=== PATIENT | male | born 1980 | race Caucasian/White ===

== ENCOUNTER 2016-07-27 12:20 | Emergency (ER) | payer OTHER ==
[~2016-07-27] VITALS: Ht 165.1 cm; Wt 80.0 kg
[~2016-07-27 12:20] MED LIST: ADV10050 INH; ADV25050 INHALATION; ALBU18HF INHALATION; ALBU8.5H3 INH; ALBU8.5H5 INH; IBUP-1542 PO; PRED20TA PO; TRAM50TA2 PO
[2016-07-27 12:24] VITALS: Ht 165.1 cm; Wt 80.0 kg
[2016-07-27] MEDS ORDERED: IPRATROPIUM (NEB) 0.5 MG/2.5 ML AMP INH STA (12:54)
[2016-07-27] MEDS ORDERED: ALBUTEROL 0.5% (NEB) 2.5 MG/0.5 ML AMP INH STA (12:54)
[2016-07-27] MEDS ORDERED: METHYLPREDNISOLONE 125 MG INJ IM ONE (13:00)
--- NOTE | 2016-07-27 14:22 | RADRPT ---
PROCEDURE: XR Chest AP portable CLINICAL INDICATION: Asthma TECHNIQUE: An AP portable radiograph of the chest was submitted. COMPARISON: 02/22/2015 FINDINGS: Support Hardware: None Cardiovascular: The cardiovascular silhouette appears unremarkable. Lung Pruett: The lung pruett appear clear with no nodule, alveolar infiltrate, or interstitial promi nence evident. Pleural Spaces: No pneumothorax or pleural effusion is identified. Osseous Structures: The osseous structures appear intact. Soft Tissues: The soft tissues appear generous. IMPRESSION: Stable and unremarkable portable chest. Physician Jan Date Time Electronically viewed and signed by Vicky Camacho Physician on 07/27/2016 14:22 /
[2016-07-27] MEDS ORDERED: ALBU18HF INHALATION (14:37)
[2016-07-27] MEDS ORDERED: PRED20TA PO (14:37)
--- NOTE | 2016-07-27 14:45 | ERD ---
ER Documentation Chief Complaint Date/Time DATE: 07/27/16 TIME: 14:42 Chief Complaint sob for past hour, breathing treatment given. bilateral insp +exp wheezing HPI 35-year-old male patient with a past medical history of asthma presents to the ED complaining of shortness of breath that started 1 hour ago. States that he called the ambulance to take him to the hospital because he was having shortness of breath and was giving one breathing treatment. States that he still smokes but is unable to quantify the amount. Denies any chest pain, abdominal pain, nausea, vomiting, diarrhea, rashes. Denies any recent traveling. Denies any leg swelling. Denies any dyspnea on exertion, hemoptysis. ROS All systems reviewed and are negative except as per history of present illness. Medications Home Meds Active Scripts Salmeterol Xinaf-Fluticasone* (Advair*) 100/50 Diskus Inhaler, 1 INH INHALATION BID, #1 INHALER Prov:MONICA SALAS PA-C 07/27/16 Albuterol Sulfate* (Ventolin HFA*) 18 Gm Hfa.aer.ad, 2 PUFF INHALATION Q4H, #1 INHALER Prov:MONICA SALAS PA-C 07/27/16 Prednisone* (Prednisone*) 20 Mg Tab, 40 MG PO DAILY for 4 Days, TAB Prov:MONICA SALAS PA-C 07/27/16 Tramadol HCl (Tramadol HCl) 50 Mg Tablet, 50 MG PO Q4 Y for PAIN, #20 TAB Prov:DENISE LEW NP 08/14/15 Ibuprofen* (Motrin*) 600 Mg Tab, 600 MG PO Q6H Y for PAIN AND OR ELEVATED TEMP, #30 TAB Prov:DENISE LEW NP 08/14/15 Salmeterol Xinaf/Fluticasone* (Advair*) 250-50 Diskus Inhaler, 1 INH INHALATION BID, #1 INHALER Prov:RAJANI MORSE MD 07/18/15 Albuterol Sulfate* (Ventolin HFA*) 18 Gm Hfa.aer.ad, 2 PUFF INHALATION Q4H, #1 INHALER 1 refill Prov:RAJANI MORSE MD 07/18/15 Prednisone* (Prednisone*) 20 Mg Tab, 60 MG PO DAILY for 5 Days, TAB 60 mg by mouth for 3 days then 40 mg by mouth 3 days Prov:RAJANI MORSE MD 07/18/15 Prednisone (Prednisone) 20 Mg Tab, 20 MG PO DAILY, #6 TAB Prov:SANDRA VILLALBA MD 02/22/15 Salmeterol Xinaf-Fluticasone* (Advair*) 100/50 Diskus Inhaler, 1 INH INH BID for 30 Days, INH Prov:SANDRA VILLALBA MD 02/22/15 Albuterol Sulfate* (Proair HFA*) 8.5 Gm Hfa.aer.ad, 2 PUFF INH Q4H Y for WHEEZING AND SOB for 30 Days, INH Prov:SANDRA VILLALBA MD 02/22/15 Albuterol Sulfate* (Albuterol Sulfate* HFA) 8.5 Gm Hfa.aer.ad, 1-2 PUFF INH Q4 Y for SHORTNESS OF BREATH, #1 EA Prov:SANDRA VILLALBA MD 02/22/15 Allergies Allergies: Coded Allergies: No Known Drug Allergies (Verified Allergy, Mild, 08/13/15) PMhx/Soc History of Surgery: No Anesthesia Reaction: No Hx Neurological Disorder: No Hx Respiratory Disorders: Yes (Asthma) Hx Cardiac Disorders: No Hx Psychiatric Problems: No Hx Miscellaneous Medical Probl: No Hx Alcohol Use: Yes (occassional) Hx Substance Use: No Hx Tobacco Use: Yes Smoking Status: Current every day smoker Physical Exam Vitals Vital Signs Date Time Temp Pulse Resp B/P Pulse Ox O2 Delivery O2 Flow Rate FiO2 07/27/16 15:36 83 20 122/68 100 Room Air 07/27/16 13:07 85 20 96 21 07/27/16 12:24 97.6 88 20 128/60 96 Physical Exam Const: [id number], well-nourished. In no acute distress. Head: Atraumatic, normocephalic Eyes: Normal Conjunctiva without injection. No purulent discharge. PERRL. EOMI ENT: Normal external ear. Ear canal without erythema. Tympanic membrane pearly cornell without effusion or bulging. Nasal canal clear with normal turbinates. Moist oropharynx without tonsillar exudates. Non-erythematous pharynx. Uvula midline. No drooling. No trismus. Neck: Full range of motion. No meningismus. No cervical lymphadenopathy. Resp: Inspiratory and expiratory wheezing noted. No rhonchi, rales, or crackles. No accessory muscle use. No retractions. Cardio: Regular rate and rhythm. No murmurs, rubs or gallops. Abd: Soft, non tender, non distended. Normal bowel sounds. No palpable masses. No rebound tenderness. No guarding. Skin: No petechiae or rashes Back: No midline tenderness. No CVA tenderness. Ext: No cyanosis, or edema. Neur: Awake and alert. Psych: Normal Mood and Affect Results 24 hrs Current Medications Medications (Trade) Dose Ordered Sig/Beatriz Route PRN Reason Start Time Stop Time Status Last Admin Dose Admin Albuterol (Proventil 0.5% (Neb)) 10 mg ONCE STAT INH 07/27/16 12:54 07/27/16 12:56 DC 07/27/16 13:04 Ipratropium [place] (Atrovent 0.02% (Neb)) 1 mg ONCE STAT INH 07/27/16 12:54 07/27/16 12:56 DC 07/27/16 13:04 Methylprednisolone Sodium Succinate (Solu-Medrol) 125 mg ONCE ONCE IM 07/27/16 13:00 07/27/16 13:01 DC 07/27/16 13:03 Procedures/MDM This is a 35-year-old male patient with a past medical history of asthma presents to the ED complaining of shortness of breath that started about 1 hour ago. Patient is afebrile and nontoxic-appearing. Patient has normal vital signs. Patient was further evaluated with 10 mg continuous albuterol, 1 mg Atrovent, Solu-Medrol 125 mg IM. Chest x-ray was ordered to further evaluate patient. PROCEDURE: XR Chest AP portable CLINICAL INDICATION: Asthma TECHNIQUE: An AP portable radiograph of the chest was submitted. COMPARISON: 02/22/2015 FINDINGS: Support Hardware: None Cardiovascular: The cardiovascular silhouette appears unremarkable. Lung [place]: The lung burnham appear clear with no nodule, alveolar infiltrate, or interstitial prominence evident. Pleural Spaces: No pneumothorax or pleural effusion is identified. Osseous Structures: The osseous structures appear intact. Soft Tissues: The soft tissues appear generous. IMPRESSION: Stable and unremarkable portable chest. Patient likely has an asthma exacerbation. Low suspicion for atypical [place], pneumonia, pulmonary embolism, pneumothorax, cardiac tamponade, sinusitis, peritonsillar abscess, mastoiditis, Brayden's angina, retropharyngeal abscess, meningitis, sepsis or other emergent conditions. Patient's respiratory status has stabilized while in the department and is appropriate for outpatient work up. Exam and work up not consistent w/ impending respiratory failure or cardiovascular collapse. Discharge medications: Prednisone, Albuterol, Advair Follow up with primary care physician in 1-2 days. Instructed patient to return to the ED sooner for any worsening symptoms. Patient's questions were answered. Patient understood and agreed with discharge plan. Patient discharged stable. Departure Diagnosis: Primary Impression: Asthma with acute exacerbation Asthma severity: unspecified severity Qualified Code: J45.901 - Asthma with acute exacerbation, unspecified asthma severity Condition: Stable Patient Instructions: Asthma Medications, Asthma, Acute (Adult), Smoking Cessation Referrals: COMMUNITY CLINICS YOU HAVE RECEIVED A MEDICAL SCREENING EXAM AND THE RESULTS INDICATE THAT YOU DO NOT HAVE A CONDITION THAT REQUIRES URGENT TREATMENT IN THE EMERGENCY DEPARTMENT. FURTHER EVALUATION AND TREATMENT OF YOUR CONDITION CAN WAIT UNTIL YOU ARE SEEN IN YOUR DOCTORS OFFICE WITHIN THE NEXT 1-2 DAYS. IT IS YOUR RESPONSIBILITY TO MAKE AN APPOINTMENT FOR FOL-UP CARE. IF YOU HAVE A PRIMARY DOCTOR --you should call your primary doctor and schedule an appointment IF YOU DO NOT HAVE A PRIMARY DOCTOR YOU CAN CALL OUR PHYSICIAN REFERRAL HOTLINE AT IF YOU CAN NOT AFFORD TO SEE A PHYSICIAN YOU CAN CHOSE FROM THE FOLLOWING [facility] [address] [facility] [facility] [address] [facility]. [facility] [address] [facility]. [facility] [address] [facility] [address] [facility]. [facility]. [address] [facility]. [facility] YOU HAVE RECEIVED A MEDICAL SCREENING EXAM AND THE RESULTS INDICATE THAT YOU DO NOT HAVE A CONDITION THAT REQUIRES URGENT TREATMENT IN THE EMERGENCY DEPARTMENT. FURTHER EVALUATION AND TREATMENT OF YOUR CONDITION CAN WAIT UNTIL YOU ARE SEEN IN YOUR DOCTORS OFFICE WITHIN THE NEXT 1-2 DAYS. IT IS YOUR RESPONSIBILITY TO MAKE AN APPOINTMENT FOR FOLOW-UP CARE. IF YOU HAVE A PRIMARY DOCTOR --you should call your primary doctor and schedule and appointment IF YOU DO NOT HAVE A PRIMARY DOCTOR YOU CAN CALL OUR PHYSICIAN REFERRAL HOTLINE AT . IF YOU CAN NOT AFFORD TO SEE A PHYSICIAN YOU CAN CHOSE FROM THE FOLLOWING [facility] INSTITUTIONS: [facility] [address] [place] [address] [facility] [address] [place], [place] [id number] [place] [address] [address] [place] [address] [facility] URGENT CARE/SPECIALTIES Additional Instructions: Call your primary care doctor TOMORROW for an appointment during the next 1-2 days for a referral to see a stem teacher. See the doctor sooner or return here if your condition worsens before your appointment time. MONICA SALAS PA-C July 27, 2016 14:45
[2016-07-27] MEDS ORDERED: ADV10050 INHALATION (14:47)
[2016-07-27 15:36] VITALS: BP 122/68; PULSE 83; RESP 20
== END 2016-07-27 15:38 | disposition home or self-care (01) ==
LOC: FTE 12:20
DX: J45.901 Unspecified asthma with (acute) exacerbation (principal); F17.210 Nicotine dependence, cigarettes, uncomplicated
CPT/HCPCS: 71010; 94644; J2930; Z7610; 96372

== ENCOUNTER 2016-10-16 13:00 | Emergency (ER) | payer SELFPAY ==
[~2016-10-16] VITALS: Ht 167.6 cm; Wt 76.0 kg
[~2016-10-16 13:00] MED LIST changes: +ADV10050 INHALATION
[2016-10-16 13:01] VITALS: Ht 167.6 cm; Wt 76.0 kg
[2016-10-16] MEDS ORDERED: ALBUTEROL 0.083% (NEB) 2.5 MG/3 ML AMP HHN STA (13:22)
--- NOTE | 2016-10-16 13:27 | ERA ---
ER Documentation Chief Complaint Date/Time DATE: 10/16/16 TIME: 13:23 Chief Complaint sob x 1 hour HX asthma HPI 36-year-old male with a history of asthma presenting with shortness of breath and wheezing. Patient states that it feels like an asthma attack. Patient states he has run out of his Advair and albuterol inhaler and that is why it has gotten this bad. No recent illness or identifiable triggers for this acute asthma exacerbation. No other complaints. No medications. No other medical conditions or past medical history. Nursing notes have been reviewed and are consistent with a history given. ROS All systems reviewed and are negative except as per history of present illness. Medications Home Meds Active Scripts Salmeterol Xinaf-Fluticasone* (Advair*) 100/50 Diskus Inhaler, 1 INH INHALATION BID, #1 INHALER Prov:VIRI GLORIA PA-C 10/16/16 Albuterol Sulfate* (Proair HFA*) 8.5 Gm Hfa.aer.ad, 2 PUFF INH Q4, #1 INHALER Prov:VIRI GLORIA PA-C 10/16/16 Salmeterol Xinaf-Fluticasone* (Advair*) 100/50 Diskus Inhaler, 1 INH INHALATION BID, #1 INHALER Prov:MONICA SALAS PA-C 07/27/16 Albuterol Sulfate* (Ventolin HFA*) 18 Gm Hfa.aer.ad, 2 PUFF INHALATION Q4H, #1 INHALER Prov:MONICA SALAS PA-C 07/27/16 Prednisone* (Prednisone*) 20 Mg Tab, 40 MG PO DAILY for 4 Days, TAB Prov:MONICA SALAS PA-C 07/27/16 Tramadol HCl (Tramadol HCl) 50 Mg Tablet, 50 MG PO Q4 Y for PAIN, #20 TAB Prov:DENISE LEW NP 08/14/15 Ibuprofen* (Motrin*) 600 Mg Tab, 600 MG PO Q6H Y for PAIN AND OR ELEVATED TEMP, #30 TAB Prov:DENISE LEW NP 08/14/15 Salmeterol Xinaf/Fluticasone* (Advair*) 250-50 Diskus Inhaler, 1 INH INHALATION BID, #1 INHALER Prov:RAJANI MORSE MD 07/18/15 Albuterol Sulfate* (Ventolin HFA*) 18 Gm Hfa.aer.ad, 2 PUFF INHALATION Q4H, #1 INHALER 1 refill Prov:RAJANI MORSE MD 07/18/15 Prednisone* (Prednisone*) 20 Mg Tab, 60 MG PO DAILY for 5 Days, TAB 60 mg by mouth for 3 days then 40 mg by mouth 3 days Prov:RAJANI MORSE MD 07/18/15 Prednisone (Prednisone) 20 Mg Tab, 20 MG PO DAILY, #6 TAB Prov:SANDRA VILLALBA MD 02/22/15 Salmeterol Xinaf-Fluticasone* (Advair*) 100/50 Diskus Inhaler, 1 INH INH BID for 30 Days, INH Prov:SANDRA VILLALBA MD 02/22/15 Albuterol Sulfate* (Proair HFA*) 8.5 Gm Hfa.aer.ad, 2 PUFF INH Q4H Y for WHEEZING AND SOB for 30 Days, INH Prov:SANDRA VILLALBA MD 02/22/15 Albuterol Sulfate* (Albuterol Sulfate* HFA) 8.5 Gm Hfa.aer.ad, 1-2 PUFF INH Q4 Y for SHORTNESS OF BREATH, #1 EA Prov:SANDRA VILLALBA MD 02/22/15 Allergies Allergies: Coded Allergies: No Known Drug Allergies (Verified Allergy, Mild, 10/16/16) PMhx/Soc History of Surgery: No Anesthesia Reaction: No Hx Neurological Disorder: No Hx Respiratory Disorders: Yes (Asthma) Hx Cardiac Disorders: No Hx Psychiatric Problems: No Hx Miscellaneous Medical Probl: No Hx Alcohol Use: Yes (occassional) Hx Substance Use: No Hx Tobacco Use: Yes Physical Exam Vitals Vital Signs Date Time Temp Pulse Resp B/P Pulse Ox O2 Delivery O2 Flow Rate FiO2 10/16/16 13:42 78 18 96 21 10/16/16 13:01 98.6 91 20 121/85 97 Physical Exam Const: Healthy-appearing. Well-nourished. Overweight. No acute distress. Pulm: Moderate wheezes in all lung pruett bilaterally. No stridor, tripoding or drooling. Neck: No cervical lymphadenopathy, masses or goiter palpated. Trachea midline. Supple ~ No meningismus. Auscultation reviled good air movement and no bruits. Nose: Normal nose without discharge, septal deviation, or sinus tenderness. Cardio: Regular rate and rhythm; No murmurs, gallops or rubs auscultated. No JVD grossly observed. Radial and posterior tibial pulses 2+ bilaterally. No cyanosis. Capillary refill less than 2 seconds. Oral: No oral edema visualized. Mucous membranes moist and pink. Head: Normocephalic, Atraumatic. Eyes: Non-injected; No scleral erythema, discharge or foreign body. EOMI and FRANK bilaterally. Ears: Normal External Ears, EACs clear, TM normal bilaterally without erythema. Abd: Soft, non tender, non distended. No guarding, masses. Normal bowel sounds. No McBurney's point tenderness. MS: Normal motor strength, normal tone with gross examination. Skin: No petechiae or rashes. No ulcer, induration, jaundice. Good turgor. Back: No midline, flank or CVA tenderness. Ext: No cyanosis, edema or palpable cord. Normal movement of all extremities grossly observed. Neur: Awake, alert and oriented x3. Neurovascularly intact bilaterally. Psych: Normal Mood and Affect. Results 24 hrs Current Medications Medications (Trade) Dose Ordered Sig/Beatriz Route PRN Reason Start Time Stop Time Status Last Admin Dose Admin Albuterol (Proventil 0.083% (Neb)) 5 mg ONCE STAT N 10/16/16 13:22 10/16/16 13:24 DC 10/16/16 13:32 Ipratropium [place] (Atrovent 0.02% (Neb)) 0.5 mg ONCE ONCE HHN 10/16/16 13:30 10/16/16 13:31 DC 10/16/16 13:32 Prednisone (Prednisone) 60 mg ONCE ONCE PO 10/16/16 13:30 10/16/16 13:31 DC 10/16/16 13:37 Procedures/MDM Patient was evaluated and worked up for shortness of breath as described in the history and physical exam. The history provided no identifiable exacerbating triggers of patients known asthma. The differential diagnosis is vast and includes, but is not limited to the following: asthma, pneumonia, bronchitis, bronchiolitis, epiglottis, acute urticaria, foreign body, etc. RT was consulted, and oxygen, 5 albuterol and Ipratropium one hour continuous nebulization was ordered. Patient also has stated that he usually receives oral prednisone that significantly helps. 60 mg of prednisone p.o. was ordered and administered. After reevaluation, the patients symptoms had improved and the lungs were clear to auscultation with no crackles, wheezing or any extra respiratory effort. The current most likely diagnosis is asthma exacerbation. At this time, I have little suspicion for pulmonary embolism, pneumonia, CHF, acute cardiac disorders, obstruction, allergic reaction, angioedema obstruction or other upper airway disorders. I have presented the case to my attending who agrees with the assessment and plan. Patient eloped before he received his medications complaining that the ED was too noisy. Departure Diagnosis: Primary Impression: Acute asthma exacerbation Qualified Code: J45.31 - Mild persistent asthma with acute exacerbation Condition: Stable Additional Instructions: Follow up with your PCP within the next 1-3 days for a more thorough evaluation and a possible referral to a specialist. Return the the emergency department immediately if symptoms worsen or change. If you have any questions regarding medications, ask your pharmacist or us before you leave. If any adverse reactions occur while taking your medications, discontinue the treatment and return to the emergency department immediately. Take your medications as directed, and complete the entire course of treatment. Comments Patient eloped after treatment but before discharge medications were given. VIRI GLORIA PA-C Oct 16, 2016 13:27
[2016-10-16] MEDS ORDERED: predniSONE 20 MG TAB PO ONE (13:30)
[2016-10-16] MEDS ORDERED: IPRATROPIUM (NEB) 0.5 MG/2.5 ML AMP HHN ONE (13:30)
[2016-10-16] MEDS ORDERED: ALBU8.5H3 INH (14:37)
[2016-10-16] MEDS ORDERED: ADV10050 INHALATION (14:37)
== END 2016-10-16 14:40 | disposition home or self-care (01) ==
LOC: FTE 13:00
DX: J45.31 Mild persistent asthma with (acute) exacerbation (principal); Z87.891 Personal history of nicotine dependence
CPT/HCPCS: 94664; 99284; J7512

== ENCOUNTER 2016-10-18 21:51 | Emergency (ER) | payer SELFPAY ==
[~2016-10-18] VITALS: Ht 165.1 cm; Wt 76.0 kg
[2016-10-18 22:03] VITALS: Ht 165.1 cm; Wt 76.0 kg
[2016-10-18] MEDS ORDERED: ALBUTEROL 0.083% (NEB) 2.5 MG/3 ML AMP HHN STA (22:13)
--- NOTE | 2016-10-18 22:23 | ERD ---
ER Documentation Chief Complaint Date/Time DATE: 10/18/16 TIME: 22:21 Chief Complaint c/o shortness of breath HPI This is a 36-year-old male presents to the ER with shortness of breath. Patient has a known history of asthma and states that his symptoms started about an hour ago. Patient was seen here 2 days ago and was prescribed refills for his inhalers, however patient states he never received them and that he would not be here if he had the inhalers. Patient is not cooperative with history. ROS 12 point review of systems was done, all negative except per HPI. Medications Home Meds Active Scripts Salmeterol Xinaf-Fluticasone* (Advair*) 100/50 Diskus Inhaler, 1 INH INHALATION BID, #1 INHALER Prov:VIRI GLORIA PA-C 10/16/16 Albuterol Sulfate* (Proair HFA*) 8.5 Gm Hfa.aer.ad, 2 PUFF INH Q4, #1 INHALER Prov:VIRI GLORIA PA-C 10/16/16 Salmeterol Xinaf-Fluticasone* (Advair*) 100/50 Diskus Inhaler, 1 INH INHALATION BID, #1 INHALER Prov:MONICA SALAS PA-C 07/27/16 Albuterol Sulfate* (Ventolin HFA*) 18 Gm Hfa.aer.ad, 2 PUFF INHALATION Q4H, #1 INHALER Prov:MONICA SALAS PA-C 07/27/16 Prednisone* (Prednisone*) 20 Mg Tab, 40 MG PO DAILY for 4 Days, TAB Prov:MONICA SALAS PA-C 07/27/16 Tramadol HCl (Tramadol HCl) 50 Mg Tablet, 50 MG PO Q4 Y for PAIN, #20 TAB Prov:DENISE LEW NP 08/14/15 Ibuprofen* (Motrin*) 600 Mg Tab, 600 MG PO Q6H Y for PAIN AND OR ELEVATED TEMP, #30 TAB Prov:DENISE LEW NP 08/14/15 Salmeterol Xinaf/Fluticasone* (Advair*) 250-50 Diskus Inhaler, 1 INH INHALATION BID, #1 INHALER Prov:RAJANI MORSE MD 07/18/15 Albuterol Sulfate* (Ventolin HFA*) 18 Gm Hfa.aer.ad, 2 PUFF INHALATION Q4H, #1 INHALER 1 refill Prov:RAJANI MORSE MD 07/18/15 Prednisone* (Prednisone*) 20 Mg Tab, 60 MG PO DAILY for 5 Days, TAB 60 mg by mouth for 3 days then 40 mg by mouth 3 days Prov:RAJANI MORSE MD 07/18/15 Prednisone (Prednisone) 20 Mg Tab, 20 MG PO DAILY, #6 TAB Prov:SANDRA VILLALBA MD 02/22/15 Salmeterol Xinaf-Fluticasone* (Advair*) 100/50 Diskus Inhaler, 1 INH INH BID for 30 Days, INH Prov:SANDRA VILLALBA MD 02/22/15 Albuterol Sulfate* (Proair HFA*) 8.5 Gm Hfa.aer.ad, 2 PUFF INH Q4H Y for WHEEZING AND SOB for 30 Days, INH Prov:SANDRA VILLALBA MD 02/22/15 Albuterol Sulfate* (Albuterol Sulfate* HFA) 8.5 Gm Hfa.aer.ad, 1-2 PUFF INH Q4 Y for SHORTNESS OF BREATH, #1 EA Prov:SANDRA VILLALBA MD 02/22/15 Allergies Allergies: Coded Allergies: No Known Drug Allergies (Verified Allergy, Mild, 10/16/16) PMhx/Soc History of Surgery: No Anesthesia Reaction: No Hx Neurological Disorder: No Hx Respiratory Disorders: Yes (Asthma) Hx Cardiac Disorders: No Hx Psychiatric Problems: No Hx Miscellaneous Medical Probl: No Hx Alcohol Use: Yes (occassional) Hx Substance Use: Yes (marijuana) Hx Tobacco Use: Yes Smoking Status: Former smoker Physical Exam Vitals Vital Signs Date Time Temp Pulse Resp B/P Pulse Ox O2 Delivery O2 Flow Rate FiO2 10/18/16 22:31 82 28 92 21 10/18/16 22:03 98.1 77 100 Physical Exam GENERAL: The patient is well-developed, well-nourished, in no acute distress. NECK: Cervical spine is non tender with no step off. Supple, no nuchal rigidity HEENT: Atraumatic. Pupils equal, round and reactive to light. Extraocular muscles are grossly intact. Conjunctivae pink, no discharge. Bilateral tympanic membranes are clear with no evidence of erythema, effusion or dulling of the light reflex. Tonsilar erythema with no exudates or uvular deviation. Clear rhinorrhea. RESPIRATORY: Expiratory wheezing in all lung pruett. No rales rhonchi or crackles. HEART: Regular rate and rhythm. No murmurs, clicks, rubs or gallops. EXTREMITIES: No clubbing or cyanosis. Full range of motion. Grossly neurovascularly intact. NEUROLOGIC: Alert and oriented. Cranial nerves II through XII are intact. SKIN: There is no rash. The skin is warm and dry. Results 24 hrs Current Medications Medications (Trade) Dose Ordered Sig/Beatriz Route PRN Reason Start Time Stop Time Status Last Admin Dose Admin Albuterol (Proventil 0.083% (Neb)) 10 mg ONCE STAT HHN 10/18/16 22:13 10/18/16 22:16 DC 10/18/16 22:31 Ipratropium [place] (Atrovent 0.02% (Neb)) 0.5 mg ONCE ONCE HHN 10/18/16 22:30 10/18/16 22:31 DC 10/18/16 22:30 Dexamethasone (Decadron) 10 mg ONCE ONCE IM 10/18/16 22:30 10/18/16 22:31 DC 10/18/16 22:20 Procedures/MDM Respiratory therapy was immediately consulted and an hour-long nebulizing treatment was initiated with albuterol and ipratropium. Patient also received a shot of Decadron. Patient states that he felt significantly better and decided to leave the ER. I had ordered an x-ray for the patient to rule out intrathoracic emergency, however patient refused x-ray. I explained to patient the risks versus benefits and told him that this could result in permanent disability rating his . Patient has had previous episodes of status asthmaticus and I urged him to stay for further workup. Patient did not want to stay and refused to sign AGAINST MEDICAL ADVICE form. Patient was alert and oriented and fully capable of making this decision. He left without prescriptions. Patient was told to return to the ER if his symptoms worsen. Departure Diagnosis: Primary Impression: Asthma with acute exacerbation Condition: ERICK Wong Oct 18, 2016 22:23
[2016-10-18] MEDS ORDERED: DEXAMETHASONE 10 MG/ML 1 ML INJ IM ONE (22:30)
[2016-10-18] MEDS ORDERED: IPRATROPIUM (NEB) 0.5 MG/2.5 ML AMP HHN ONE (22:30)
== END 2016-10-18 23:35 | disposition left against medical advice (07) ==
LOC: FTE 21:51
DX: J45.901 Unspecified asthma with (acute) exacerbation (principal); Z87.891 Personal history of nicotine dependence
CPT/HCPCS: 94644; 96372; 99284; J1100

== ENCOUNTER 2016-11-16 07:12 | Emergency (ER) | payer SELFPAY ==
[~2016-11-16] VITALS: Wt 72.0 kg
[2016-11-16] MEDS ORDERED: ALBUTEROL/IPRATROPIUM (NEB) 3 ML AMP HHN STA (07:33)
--- NOTE | 2016-11-16 07:37 | ERD ---
ER Documentation Chief Complaint Date/Time DATE: 11/16/16 TIME: 07:35 Chief Complaint sob and wheezing after ran out of albuterol . no chest pain on arrival HPI Patient is a 36-year-old male who presents with gradual onset, constant, progressive wheezing and mild shortness of breath for 1 day after running out of his albuterol inhaler. He denies that he was using his inhaler more than usual. He reports that he smokes cigarettes and cannabis. He denies productive cough, fever, chest pain. ROS All systems reviewed and are negative except as per history of present illness. Medications Home Meds Active Scripts Albuterol Sulfate* (Proair HFA*) 8.5 Gm Hfa.aer.ad, 2 PUFF INH Q4, #1 INHALER Prov:ANN SOLO MD 11/16/16 Prednisone (Prednisone) 50 Mg Tab, 50 MG PO DAILY, #4 TAB Prov:ANN SOLO MD 11/16/16 Salmeterol Xinaf-Fluticasone* (Advair*) 100/50 Diskus Inhaler, 1 INH INHALATION BID, #1 INHALER Prov:VIRI GLORIA PA-C 10/16/16 Albuterol Sulfate* (Proair HFA*) 8.5 Gm Hfa.aer.ad, 2 PUFF INH Q4, #1 INHALER Prov:VIRI GLORIA PA-C 10/16/16 Salmeterol Xinaf-Fluticasone* (Advair*) 100/50 Diskus Inhaler, 1 INH INHALATION BID, #1 INHALER Prov:MONICA SALAS PA-C 07/27/16 Albuterol Sulfate* (Ventolin HFA*) 18 Gm Hfa.aer.ad, 2 PUFF INHALATION Q4H, #1 INHALER Prov:MONICA SALAS PA-C 07/27/16 Prednisone* (Prednisone*) 20 Mg Tab, 40 MG PO DAILY for 4 Days, TAB Prov:MONICA SALAS PA-C 07/27/16 Tramadol HCl (Tramadol HCl) 50 Mg Tablet, 50 MG PO Q4 Y for PAIN, #20 TAB Prov:DENISE LEW NP 08/14/15 Ibuprofen* (Motrin*) 600 Mg Tab, 600 MG PO Q6H Y for PAIN AND OR ELEVATED TEMP, #30 TAB Prov:DENISE LEW NP 08/14/15 Salmeterol Xinaf/Fluticasone* (Advair*) 250-50 Diskus Inhaler, 1 INH INHALATION BID, #1 INHALER Prov:RAJANI MORSE MD 07/18/15 Albuterol Sulfate* (Ventolin HFA*) 18 Gm Hfa.aer.ad, 2 PUFF INHALATION Q4H, #1 INHALER 1 refill Prov:RAJANI MORSE MD 07/18/15 Prednisone* (Prednisone*) 20 Mg Tab, 60 MG PO DAILY for 5 Days, TAB 60 mg by mouth for 3 days then 40 mg by mouth 3 days Prov:RAJANI MORSE MD 07/18/15 Prednisone (Prednisone) 20 Mg Tab, 20 MG PO DAILY, #6 TAB Prov:SANDRA VILLALBA MD 02/22/15 Salmeterol Xinaf-Fluticasone* (Advair*) 100/50 Diskus Inhaler, 1 INH INH BID for 30 Days, INH Prov:SANDRA VILLALBA MD 02/22/15 Albuterol Sulfate* (Proair HFA*) 8.5 Gm Hfa.aer.ad, 2 PUFF INH Q4H Y for WHEEZING AND SOB for 30 Days, INH Prov:SANDRA VILLALBA MD 02/22/15 Albuterol Sulfate* (Albuterol Sulfate* HFA) 8.5 Gm Hfa.aer.ad, 1-2 PUFF INH Q4 Y for SHORTNESS OF BREATH, #1 EA Prov:SANDRA VILLALBA MD 02/22/15 Allergies Allergies: Coded Allergies: No Known Drug Allergies (Verified Allergy, Mild, 10/16/16) PMhx/Soc Past medical history: Asthma Past surgical history: Denies Social history: Smokes tobacco and cannabis, drinks socially History of Surgery: No Anesthesia Reaction: No Hx Neurological Disorder: No Hx Respiratory Disorders: Yes (Asthma) Hx Cardiac Disorders: No Hx Psychiatric Problems: No Hx Miscellaneous Medical Probl: No Hx Alcohol Use: Yes (occassional) Hx Substance Use: Yes (marijuana) Hx Tobacco Use: Yes FmHx Family History: No coronary disease, No diabetes Physical Exam Vitals Vital Signs Date Time Temp Pulse Resp B/P Pulse Ox O2 Delivery O2 Flow Rate FiO2 11/16/16 10:40 74 18 108/78 98 Room Air 11/16/16 10:10 220 18 88/58 Room Air 11/16/16 08:15 68 20 98 21 11/16/16 07:20 97.9 88 20 120/71 99 Physical Exam Const: Alert, no acute distress Head: Atraumatic Eyes: Normal Conjunctiva, No pallor, no icterus ENT: Normal External Ears, Nose and Mouth.Mucous membranes moist Neck: Full range of motion..~ No meningismus. Resp: Diffuse wheezes, no rales. Prolonged expirations. Cardio: Regular rate and rhythm, no murmurs Abd: Soft, non tender, non distended. Skin: No petechiae or rashes Back: No midline or flank tenderness Ext: No cyanosis, or edema Neur: Awake and alert Psych: Normal Mood and Affect Results 24 hrs Current Medications Medications (Trade) Dose Ordered Sig/Beatriz Route PRN Reason Start Time Stop Time Status Last Admin Dose Admin Albuterol/ Ipratropium (Duoneb) 3 ml ONCE STAT HHN 11/16/16 07:33 11/16/16 07:35 DC 11/16/16 08:14 Adenosine 6 mg 6 mg ONCE ONCE IV 11/16/16 11:00 11/16/16 11:01 DC Sodium Chloride (NS) 1,000 ml @ 1,000 mls/hr Q1H ONCE IV 11/16/16 11:00 11/16/16 11:59 DC Procedures/MDM Patient is a 36-year-old male with history of asthma who reports increased dyspnea in the setting of his albuterol inhaler running out of medication. He had diffuse wheezes, but no respiratory distress or hypoxia. He was treated with a DuoNeb treatment, and had significant improvement. Prior to discharge, the patient went into SVT. This is observed on the monitor. He had stable blood pressure. He performed a Valsalva maneuver and converted to sinus rhythm. The patient refused EKG or further workup. He stated that he has history of paroxysmal SVT and is able to converted on his own. He signed out AGAINST MEDICAL ADVICE due to refusing EKG. The patient did acknowledge to nursing but not to me that he uses methamphetamines. Departure Diagnosis: Primary Impression: Asthma exacerbation Additional Impression: Paroxysmal supraventricular tachycardia Condition: Stable ANN SOLO MD Nov 16, 2016 07:37
[2016-11-16] MEDS ORDERED: PRED50 PO (09:12)
[2016-11-16] MEDS ORDERED: ALBU8.5H3 INH (09:12)
[2016-11-16 10:40] VITALS: BP 108/78; PULSE 74; RESP 18
[2016-11-16] MEDS ORDERED: ADENOSINE 3 MG/ML SYRINGE IV ONE (11:00)
[2016-11-16] MEDS ORDERED: SOD CHLORIDE 0.9% 1,000 ML IV ONE (11:00)
== END 2016-11-17 06:41 | disposition home or self-care (01) ==
LOC: E/R 07:12
DX: J45.901 Unspecified asthma with (acute) exacerbation (principal); I47.1 Supraventricular tachycardia; Z87.891 Personal history of nicotine dependence
CPT/HCPCS: 94664; 99284; J0153; J7030

== ENCOUNTER 2016-12-21 02:21 | Emergency (ER) | payer SELFPAY ==
[~2016-12-21] VITALS: Ht 165.1 cm; Wt 70.0 kg
[~2016-12-21 02:21] MED LIST changes: +PRED50 PO
[2016-12-21 02:28] VITALS: Ht 165.1 cm; Wt 70.0 kg
[2016-12-21] MEDS ORDERED: ALBUTEROL 0.083% (NEB) 2.5 MG/3 ML AMP HHN STA (02:56)
[2016-12-21] MEDS ORDERED: IPRATROPIUM (NEB) 0.5 MG/2.5 ML AMP HHN ONE (03:00)
[2016-12-21] MEDS ORDERED: METHYLPREDNISOLONE 125 MG INJ IM ONE (03:00)
[2016-12-21] MEDS ORDERED: PRED20TA PO (03:01)
--- NOTE | 2016-12-21 03:01 | ERD ---
ER Documentation Chief Complaint Date/Time DATE: 12/21/16 TIME: 02:50 Chief Complaint sob/asthma x 30 minutes HPI 36-year-old male who was brought in by ambulance here in the emergency department for shortness of breath and wheezing 30 minutes prior to arrival here. He was given breathing treatment by the medics. Patient stated that he does not want any breathing treatment and once a prescription of Singulair. No known drug allergies. Past medical history of asthma. Surgical history: None. 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 Denies use of alcoholic beverages. ROS All systems reviewed and are negative except as per history of present illness. Medications Home Meds Active Scripts Salmeterol Xinaf/Fluticasone* (Advair*) 250-50 Diskus Inhaler, 1 INH INHALATION BID, #1 INHALER Prov:DEIDRA FAIR 12/21/16 Albuterol Sulfate* (Proair HFA*) 8.5 Gm Hfa.aer.ad, 2 PUFF INH Q4, #1 INHALER Prov:DEIDRA FAIR 12/21/16 Prednisone* (Prednisone*) 20 Mg Tab, 60 MG PO DAILY for 4 Days, TAB Prov:DEIDRA FAIR 12/21/16 Albuterol Sulfate* (Proair HFA*) 8.5 Gm Hfa.aer.ad, 2 PUFF INH Q4, #1 INHALER Prov:ANN SOLO MD 11/16/16 Prednisone (Prednisone) 50 Mg Tab, 50 MG PO DAILY, #4 TAB Prov:ANN SOLO MD 11/16/16 Salmeterol Xinaf-Fluticasone* (Advair*) 100/50 Diskus Inhaler, 1 INH INHALATION BID, #1 INHALER Prov:VIRI GLORIA PA-C 10/16/16 Albuterol Sulfate* (Proair HFA*) 8.5 Gm Hfa.aer.ad, 2 PUFF INH Q4, #1 INHALER Prov:VIRI GLORIA PA-C 10/16/16 Salmeterol Xinaf-Fluticasone* (Advair*) 100/50 Diskus Inhaler, 1 INH INHALATION BID, #1 INHALER Prov:MONICA SALAS PA-C 07/27/16 Albuterol Sulfate* (Ventolin HFA*) 18 Gm Hfa.aer.ad, 2 PUFF INHALATION Q4H, #1 INHALER Prov:MONICA SALAS PA-C 07/27/16 Prednisone* (Prednisone*) 20 Mg Tab, 40 MG PO DAILY for 4 Days, TAB Prov:MONICA SALAS PA-C 07/27/16 Tramadol HCl (Tramadol HCl) 50 Mg Tablet, 50 MG PO Q4 Y for PAIN, #20 TAB Prov:DENISE LEW NP 08/14/15 Ibuprofen* (Motrin*) 600 Mg Tab, 600 MG PO Q6H Y for PAIN AND OR ELEVATED TEMP, #30 TAB Prov:DENISE LEW NP 08/14/15 Salmeterol Xinaf/Fluticasone* (Advair*) 250-50 Diskus Inhaler, 1 INH INHALATION BID, #1 INHALER Prov:RAJANI MORSE MD 07/18/15 Albuterol Sulfate* (Ventolin HFA*) 18 Gm Hfa.aer.ad, 2 PUFF INHALATION Q4H, #1 INHALER 1 refill Prov:RAJANI MORSE MD 07/18/15 Prednisone* (Prednisone*) 20 Mg Tab, 60 MG PO DAILY for 5 Days, TAB 60 mg by mouth for 3 days then 40 mg by mouth 3 days Prov:RAJANI MORSE MD 07/18/15 Prednisone (Prednisone) 20 Mg Tab, 20 MG PO DAILY, #6 TAB Prov:SANDRA VILLALBA MD 02/22/15 Salmeterol Xinaf-Fluticasone* (Advair*) 100/50 Diskus Inhaler, 1 INH INH BID for 30 Days, INH Prov:SANDRA VILLALBA MD 02/22/15 Albuterol Sulfate* (Proair HFA*) 8.5 Gm Hfa.aer.ad, 2 PUFF INH Q4H Y for WHEEZING AND SOB for 30 Days, INH Prov:SANDRA VILLALBA MD 02/22/15 Albuterol Sulfate* (Albuterol Sulfate* HFA) 8.5 Gm Hfa.aer.ad, 1-2 PUFF INH Q4 Y for SHORTNESS OF BREATH, #1 EA Prov:SANDRA VILLALBA MD 02/22/15 Allergies Allergies: Coded Allergies: No Known Drug Allergies (Verified Allergy, Mild, 12/21/16) PMhx/Soc History of Surgery: No Anesthesia Reaction: No Hx Neurological Disorder: No Hx Respiratory Disorders: Yes (Asthma) Hx Cardiac Disorders: No Hx Psychiatric Problems: No Hx Miscellaneous Medical Probl: No Hx Alcohol Use: Yes (occassional) Hx Substance Use: Yes (marijuana, CRYSTAL METH) Hx Tobacco Use: Yes Smoking Status: Never smoker Physical Exam Vitals Vital Signs Date Time Temp Pulse Resp B/P Pulse Ox O2 Delivery O2 Flow Rate FiO2 12/21/16 02:28 97.1 90 20 102/55 99 Physical Exam Const: [] Head: Atraumatic Eyes: Normal Conjunctiva ENT: Normal External Ears, Nose and Mouth. Neck: Full range of motion..~ No meningismus. Resp: Clear to auscultation bilaterally Cardio: Regular rate and rhythm, no murmurs Abd: Soft, non tender, non distended. Normal bowel sounds Skin: No petechiae or rashes Back: No midline or flank tenderness Ext: No cyanosis, or edema Neur: Awake and alert Psych: Normal Mood and Affect Results 24 hrs Current Medications Medications (Trade) Dose Ordered Sig/Beatriz Route PRN Reason Start Time Stop Time Status Last Admin Dose Admin Methylprednisolone Sodium Succinate (Solu-Medrol) 125 mg ONCE ONCE IM 12/21/16 03:00 12/21/16 03:01 DC Albuterol (Proventil 0.083% (Neb)) 5 mg ONCE STAT HHN 12/21/16 02:56 12/21/16 02:57 DC Ipratropium [place] (Atrovent 0.02% (Neb)) 0.5 mg ONCE ONCE N 12/21/16 03:00 12/21/16 03:01 DC Procedures/MDM 36-year-old male who was brought in by ambulance here in the emergency department for shortness of breath and wheezing 30 minutes prior to arrival here. He was given breathing treatment by the medics. Patient stated that he does not want any breathing treatment and once a prescription of Singulair. No known drug allergies. Past medical history of asthma. Surgical history: None. 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 Denies use of alcoholic beverages. Physical exam: Lung sounds are clear to auscultation. Disease process was explained to the patient. He verbalized understanding and agreed with the plan of care. Treatment: Solu-Medrol IM. Reevaluation: Denies headache, dizziness, blurred vision, neck pain, shoulder pain, chest pain, back pain, difficulty breathing. Lung sounds are clear to auscultation. Differential diagnosis: Asthma exacerbation versus status asthmaticus Final diagnosis: Asthma exacerbation Prescription: Singulair. Prednisone. Pro-air. Follow-up with primary care physician the next 24-48 hours. Come back here in the emergency department for any new symptoms or any worsening of symptoms. All questions and concerns are answered. Patient verbalized understanding and agreed with the plan of care. Hemodynamically stable on discharge. Departure Diagnosis: Primary Impression: Asthma Additional Impression: Asthma with acute exacerbation Condition: Stable Additional Instructions: Follow-up with primary care physician the next 24-48 hours. Come back here in the emergency department for any new symptoms or any worsening of symptoms. All questions and concerns are answered. Patient verbalized understanding and agreed with the plan of care. DEIDRA FAIR Dec 21, 2016 03:01
[2016-12-21] MEDS ORDERED: ALBU8.5H3 INH (03:02)
[2016-12-21] MEDS ORDERED: ADV25050 INHALATION (03:03)
== END 2016-12-21 03:08 | disposition home or self-care (01) ==
LOC: FTE 02:21
DX: J45.901 Unspecified asthma with (acute) exacerbation (principal); Z87.891 Personal history of nicotine dependence
CPT/HCPCS: 99284

== ENCOUNTER 2016-12-23 15:01 | Emergency (ER) | payer SELFPAY ==
[~2016-12-23] VITALS: Ht 162.6 cm; Wt 78.0 kg
[2016-12-23 15:04] VITALS: Ht 162.6 cm; Wt 78.0 kg
[2016-12-23] MEDS ORDERED: DEXAMETHASONE 10 MG/ML 1 ML INJ IM STA (15:08)
[2016-12-23] MEDS ORDERED: ALBUTEROL 0.5% (NEB) 2.5 MG/0.5 ML AMP NEB STA (15:08)
[2016-12-23] MEDS ORDERED: IPRATROPIUM (NEB) 0.5 MG/2.5 ML AMP NEB STA (15:08)
--- NOTE | 2016-12-23 15:08 | ERD ---
ER Documentation Chief Complaint Date/Time DATE: 12/23/16 TIME: 15:07 Chief Complaint wheezing, off meds for while HPI 36y/o male with history of asthma. Presents to ED, c/o 3 days of worsening of respiratory symptoms including wheezing, cough, shortness of breath and chest tightness. The patient ran out of medications 5 days ago. He usually takes advair and Proair. No fever or chills ROS All systems reviewed and are negative except as per history of present illness. Medications Home Meds Active Scripts Salmeterol Xinaf/Fluticasone* (Advair*) 250-50 Diskus Inhaler, 1 INH INHALATION BID, #1 INHALER Prov:HERMILAISSACDEIDRA F 12/21/16 Albuterol Sulfate* (Proair HFA*) 8.5 Gm Hfa.aer.ad, 2 PUFF INH Q4, #1 INHALER Prov:HERMILAISSACCHARLESAR F 12/21/16 Prednisone* (Prednisone*) 20 Mg Tab, 60 MG PO DAILY for 4 Days, TAB Prov:BRIDGETTEVIJAYCHARLESAR F 12/21/16 Albuterol Sulfate* (Proair HFA*) 8.5 Gm Hfa.aer.ad, 2 PUFF INH Q4, #1 INHALER Prov:ANN SOLO MD 11/16/16 Prednisone (Prednisone) 50 Mg Tab, 50 MG PO DAILY, #4 TAB Prov:ANN SOLO MD 11/16/16 Salmeterol Xinaf-Fluticasone* (Advair*) 100/50 Diskus Inhaler, 1 INH INHALATION BID, #1 INHALER Prov:VIRI GLORIA PA-C 10/16/16 Albuterol Sulfate* (Proair HFA*) 8.5 Gm Hfa.aer.ad, 2 PUFF INH Q4, #1 INHALER Prov:VIRI GLORIA PA-C 10/16/16 Salmeterol Xinaf-Fluticasone* (Advair*) 100/50 Diskus Inhaler, 1 INH INHALATION BID, #1 INHALER Prov:MONICA SALAS PA-C 07/27/16 Albuterol Sulfate* (Ventolin HFA*) 18 Gm Hfa.aer.ad, 2 PUFF INHALATION Q4H, #1 INHALER Prov:MONICA SALAS PA-C 07/27/16 Prednisone* (Prednisone*) 20 Mg Tab, 40 MG PO DAILY for 4 Days, TAB Prov:MONICA SALAS PA-C 07/27/16 Tramadol HCl (Tramadol HCl) 50 Mg Tablet, 50 MG PO Q4 Y for PAIN, #20 TAB Prov:DENISE LEW [employer] 08/14/15 Ibuprofen* (Motrin*) 600 Mg Tab, 600 MG PO Q6H Y for PAIN AND OR ELEVATED TEMP, #30 TAB Prov:DENISE LEW [employer] 08/14/15 Salmeterol Xinaf/Fluticasone* (Advair*) 250-50 Diskus Inhaler, 1 INH INHALATION BID, #1 INHALER Prov:RAJANI MORSE MD 07/18/15 Albuterol Sulfate* (Ventolin HFA*) 18 Gm Hfa.aer.ad, 2 PUFF INHALATION Q4H, #1 INHALER 1 refill Prov:RAJANI MORSE MD 07/18/15 Prednisone* (Prednisone*) 20 Mg Tab, 60 MG PO DAILY for 5 Days, TAB 60 mg by mouth for 3 days then 40 mg by mouth 3 days Prov:RAJANI MORSE MD 07/18/15 Prednisone (Prednisone) 20 Mg Tab, 20 MG PO DAILY, #6 TAB Prov:SANDRA VILLALBA MD 02/22/15 Salmeterol Xinaf-Fluticasone* (Advair*) 100/50 Diskus Inhaler, 1 INH INH BID for 30 Days, INH Prov:SANDRA VILLALBA MD 02/22/15 Albuterol Sulfate* (Proair HFA*) 8.5 Gm Hfa.aer.ad, 2 PUFF INH Q4H Y for WHEEZING AND SOB for 30 Days, INH Prov:SANDRA VILLALBA MD 02/22/15 Albuterol Sulfate* (Albuterol Sulfate* HFA) 8.5 Gm Hfa.aer.ad, 1-2 PUFF INH Q4 Y for SHORTNESS OF BREATH, #1 EA Prov:SANDRA VILLALBA MD 02/22/15 Allergies Allergies: Coded Allergies: No Known Drug Allergies (Verified Allergy, Mild, 12/21/16) PMhx/Soc History of Surgery: No Anesthesia Reaction: No Hx Neurological Disorder: No Hx Respiratory Disorders: Yes (Asthma) Hx Cardiac Disorders: No Hx Psychiatric Problems: No Hx Miscellaneous Medical Probl: No Hx Alcohol Use: Yes (occassional) Hx Substance Use: Yes (marijuana, CRYSTAL METH) Hx Tobacco Use: Yes Physical Exam Vitals Vital Signs Date Time Temp Pulse Resp B/P Pulse Ox O2 Delivery O2 Flow Rate FiO2 12/23/16 15:25 Nasal Cannula 12/23/16 15:20 95 17 95 21 12/23/16 15:04 98.1 122 18 123/93 94 Physical Exam Const: The patient looks in mild respiratory distress, speaking in short sentences, assuming a tripod position Head: Atraumatic Eyes: Normal Conjunctiva ENT: erythematous oropharynx. Resp: Bilateral diffuse inspiratory and expiratory wheezing Cardio: Regular rate and rhythm, no murmurs Abd: Soft, non tender, non distended. Normal bowel sounds Results 24 hrs Current Medications Medications (Trade) Dose Ordered Sig/Beatriz Route PRN Reason Start Time Stop Time Status Last Admin Dose Admin Albuterol (Proventil 0.5% (Neb)) 10 mg ONCE STAT NEB 12/23/16 15:08 12/23/16 15:11 DC 12/23/16 15:18 Ipratropium [place] (Atrovent 0.02% (Neb)) 0.5 mg ONCE STAT NEB 12/23/16 15:08 12/23/16 15:11 DC 12/23/16 15:18 Dexamethasone (Decadron) 10 mg ONCE STAT IM 12/23/16 15:08 12/23/16 15:11 DC 12/23/16 15:14 Albuterol/ Ipratropium (Duoneb) 3 ml ONCE STAT HHN 12/23/16 15:58 12/23/16 16:01 DC Procedures/MDM Acute bronchospasm: Most likely acute asthma exacerbation due to poor compliance with medication. The patient feels much better after the breathing treatment and steroid. Differential diagnoses include bacterial bronchitis upper, respiratory infection. Departure Diagnosis: Primary Impression: Asthma with acute exacerbation Additional Impression: Respiratory distress Condition: Stable DANI PATEL MD Dec 23, 2016 15:08
[2016-12-23] MEDS ORDERED: ALBUTEROL/IPRATROPIUM (NEB) 3 ML AMP HHN STA (15:58)
[2016-12-23] MEDS ORDERED: ADV25050 INHALATION (16:29)
[2016-12-23] MEDS ORDERED: ALBU8.5H3 INH (16:29)
[2016-12-23] MEDS ORDERED: PRED20TA PO (16:29)
== END 2016-12-23 17:07 | disposition left against medical advice (07) ==
LOC: FTE 15:01
DX: J45.901 Unspecified asthma with (acute) exacerbation (principal); R06.03 Acute respiratory distress; Z87.891 Personal history of nicotine dependence
CPT/HCPCS: 94664; 96372; 99284; J1100

== ENCOUNTER 2016-12-29 12:20 | Emergency (ER) | payer MEDICAID ==
[~2016-12-29] VITALS: Ht 162.6 cm; Wt 71.0 kg
[2016-12-29 12:24] VITALS: Ht 162.6 cm; Wt 71.0 kg
--- NOTE | 2016-12-29 13:05 | ERA ---
ER Documentation Chief Complaint Date/Time DATE: 12/29/16 TIME: 13:05 Chief Complaint sob , off meds x 2 weeks HPI The patient is a 36-year-old male, presenting to the ER because of breath for the last week, worse today. He ran out of medication for the last 2 weeks, fever, nasal congestion, cough, neck pain, chest pain, abdominal pain, vomiting , dysuria, diarrhea. He smokes socially and also smokes marijuana, denies illicit drug, drinks socially Past Medical history: Asthma Past Surgical history: None ROS All systems reviewed and are negative except as per history of present illness. Medications Home Meds Active Scripts Prednisone* (Prednisone*) 20 Mg Tab, 60 MG PO DAILY for 5 Days, TAB Prov:VIRI AQUINO MD 12/29/16 Albuterol Sulfate* (Proair HFA*) 8.5 Gm Hfa.aer.ad, 2 PUFF INH Q4, #1 INHALER Prov:VIRI AQUINO MD 12/29/16 Prednisone* (Prednisone*) 20 Mg Tab, 20 MG PO BID for 5 Days, TAB Prov:DANI PAETL MD 12/23/16 Salmeterol Xinaf/Fluticasone* (Advair*) 250-50 Diskus Inhaler, 1 INH INHALATION BID, #1 INHALER 3 Refills Prov:DANI PATEL MD 12/23/16 Albuterol Sulfate* (Proair HFA*) 8.5 Gm Hfa.aer.ad, 2 PUFF INH Q4 for SHORTNESS OF BREATH, #1 INHALER 3 Refills Prov:DANI PATEL MD 12/23/16 Salmeterol Xinaf/Fluticasone* (Advair*) 250-50 Diskus Inhaler, 1 INH INHALATION BID, #1 INHALER Prov:DEIDRA FAIR 12/21/16 Albuterol Sulfate* (Proair HFA*) 8.5 Gm Hfa.aer.ad, 2 PUFF INH Q4, #1 INHALER Prov:PASILACHARLES DAVENPORTAR F 12/21/16 Prednisone* (Prednisone*) 20 Mg Tab, 60 MG PO DAILY for 4 Days, TAB Prov:PASCHARLES LINARESAR F 12/21/16 Albuterol Sulfate* (Proair HFA*) 8.5 Gm Hfa.aer.ad, 2 PUFF INH Q4, #1 INHALER Prov:ANN SOLO MD 11/16/16 Prednisone (Prednisone) 50 Mg Tab, 50 MG PO DAILY, #4 TAB Prov:ANN SOLO MD 11/16/16 Salmeterol Xinaf-Fluticasone* (Advair*) 100/50 Diskus Inhaler, 1 INH INHALATION BID, #1 INHALER Prov:VIRI GLORIA PA-C 10/16/16 Albuterol Sulfate* (Proair HFA*) 8.5 Gm Hfa.aer.ad, 2 PUFF INH Q4, #1 INHALER Prov:VIRI GLORIA PA-C 10/16/16 Salmeterol Xinaf-Fluticasone* (Advair*) 100/50 Diskus Inhaler, 1 INH INHALATION BID, #1 INHALER Prov:MONICA SALAS PA-C 07/27/16 Albuterol Sulfate* (Ventolin HFA*) 18 Gm Hfa.aer.ad, 2 PUFF INHALATION Q4H, #1 INHALER Prov:MONICA SALAS PA-C 07/27/16 Prednisone* (Prednisone*) 20 Mg Tab, 40 MG PO DAILY for 4 Days, TAB Prov:MONICA SALAS PA-C 07/27/16 Tramadol HCl (Tramadol HCl) 50 Mg Tablet, 50 MG PO Q4 Y for PAIN, #20 TAB Prov:DENISE LEW NP 08/14/15 Ibuprofen* (Motrin*) 600 Mg Tab, 600 MG PO Q6H Y for PAIN AND OR ELEVATED TEMP, #30 TAB Prov:DENISE ELW NP 08/14/15 Salmeterol Xinaf/Fluticasone* (Advair*) 250-50 Diskus Inhaler, 1 INH INHALATION BID, #1 INHALER Prov:RAJANI MORSE MD 07/18/15 Albuterol Sulfate* (Ventolin HFA*) 18 Gm Hfa.aer.ad, 2 PUFF INHALATION Q4H, #1 INHALER 1 refill Prov:RAJANI MORSE MD 07/18/15 Prednisone* (Prednisone*) 20 Mg Tab, 60 MG PO DAILY for 5 Days, TAB 60 mg by mouth for 3 days then 40 mg by mouth 3 days Prov:RAJANI MORSE MD 07/18/15 Prednisone (Prednisone) 20 Mg Tab, 20 MG PO DAILY, #6 TAB Prov:SANDRA VILLALBA MD 02/22/15 Salmeterol Xinaf-Fluticasone* (Advair*) 100/50 Diskus Inhaler, 1 INH INH BID for 30 Days, INH Prov:SANDRA VILLALBA MD 02/22/15 Albuterol Sulfate* (Proair HFA*) 8.5 Gm Hfa.aer.ad, 2 PUFF INH Q4H Y for WHEEZING AND SOB for 30 Days, INH Prov:SANDRA VILLALBA MD 02/22/15 Albuterol Sulfate* (Albuterol Sulfate* HFA) 8.5 Gm Hfa.aer.ad, 1-2 PUFF INH Q4 Y for SHORTNESS OF BREATH, #1 EA Prov:SANDRA VILLALBA MD 02/22/15 Allergies Allergies: Coded Allergies: No Known Drug Allergies (Verified Allergy, Mild, 12/21/16) PMhx/Soc History of Surgery: No Anesthesia Reaction: No Hx Neurological Disorder: No Hx Respiratory Disorders: Yes (Asthma) Hx Cardiac Disorders: No Hx Psychiatric Problems: No Hx Miscellaneous Medical Probl: No Hx Alcohol Use: Yes (occassional) Hx Substance Use: Yes (marijuana, CRYSTAL METH) Hx Tobacco Use: Yes Physical Exam Vitals Vital Signs Date Time Temp Pulse Resp B/P Pulse Ox O2 Delivery O2 Flow Rate FiO2 12/29/16 15:38 98.0 84 20 107/65 100 Room Air 12/29/16 13:21 79 25 97 Nasal Cannula 2.0 12/29/16 13:17 Nasal Cannula 2 12/29/16 12:24 98.1 105 20 126/86 95 Physical Exam Const: No acute distress. Head: Atraumatic. Eyes: Normal Conjunctiva. ENT: Normal External Ears, Nose and Mouth. Neck: Full range of motion. No meningismus. Resp: Tachypneic, bilateral expiratory wheezes Cardio: Regular tachycardic Abd: Soft, non distended, normal bowel sounds, non tender. Skin: No petechiae or rashes. Back: No midline or flank tenderness. Ext: No cyanosis, or edema. Neur: Awake and alert. No focal deficit Psych: Normal Mood and Affect. Result Diagram: 12/29/16 1315 12/29/16 1315 Results 24 hrs Laboratory Tests Test 12/29/16 13:15 White Blood Count 8.210^3/ul Red Blood Count 5.2110^6/ul Hemoglobin 15.3g/dl Hematocrit 46.9% Mean Corpuscular Volume 90.0fl Mean Corpuscular Hemoglobin 29.4pg Mean Corpuscular Hemoglobin Concent 32.6g/dl Red Cell Distribution Width 12.8% Platelet Count 56291^3/UL Mean Platelet Volume 9.2fl Neutrophils % 57.0% Lymphocytes % 29.8% Monocytes % 7.8% Eosinophils % 4.5% Basophils % 0.7% Nucleated Red Blood Cells % 0.0/100WBC Neutrophils # 4.710^3/ul Lymphocytes # 2.510^3/ul Monocytes # 0.610^3/ul Eosinophils # 0.410^3/ul Basophils # 0.110^3/ul Nucleated Red Blood Cells # 0.010^3/ul Sodium Level 145mmol/L Potassium Level 3.7mmol/L Chloride Level 105mmol/L Carbon Dioxide Level 32mmol/L Anion Gap 12 Blood Urea Nitrogen 12mg/dl Creatinine 1.02mg/dl Glucose Level 67mg/dl Calcium Level 8.8mg/dl Current Medications Medications (Trade) Dose Ordered Sig/Beatriz Route PRN Reason Start Time Stop Time Status Last Admin Dose Admin Albuterol (Proventil 0.083% (Neb)) 2.5 mg STK-MED ONCE .ROUTE 12/29/16 13:10 12/29/16 13:11 DC Ipratropium [place] (Atrovent 0.02% (Neb)) 0.5 mg STK-MED ONCE .ROUTE 12/29/16 13:10 12/29/16 13:11 DC Levalbuterol (Xopenex Neb) 3.75 mg ONCE STAT INH 12/29/16 13:08 12/29/16 13:11 DC 12/29/16 13:20 Ipratropium [place] (Atrovent 0.02% (Neb)) 1.5 mg ONCE STAT INH 12/29/16 13:08 12/29/16 13:11 DC 12/29/16 13:21 Methylprednisolone Sodium Succinate 125 mg 125 mg ONCE STAT IV 12/29/16 13:08 12/29/16 13:11 DC 12/29/16 13:50 Magnesium Sulfate 50 ml @ 25 mls/hr ONCE STAT IVPB 12/29/16 13:08 12/29/16 15:07 DC 12/29/16 13:50 Sodium Chloride (NS) 1,000 ml @ 1,000 mls/hr Q1H ONCE IV 12/29/16 13:30 12/29/16 14:29 DC 12/29/16 13:50 Procedures/MDM [place] [address] Radiology Main Line: [phone] DIAGNOSTIC IMAGING REPORT Patient: RITU VILLEDA : 1980 Age: 36 Sex: M MR #: [id number] DOS: 12/29/16 1400 Ordering MD: VIRI AQUINO MD Location: [facility]TE Room/Bed: PROCEDURE: XR Chest. CLINICAL INDICATION: Shortness of breath TECHNIQUE: Single frontal view of the chest was obtained COMPARISON: 07/27/2016 FINDINGS: No pleural effusion or pneumothorax. No consolidation. Stable cardiomediastinal silhouette. No acute osseous abnormality. IMPRESSION: No acute cardiopulmonary disease. RPTAT: EE Physician [place] Date Time Electronically viewed and signed by Physician Montrell on 12/29/2016 14 :34 GC/ CC: VIRI AQUINO MD MEDICAL MAKING DECISION: The patient is a 36-year-old male, presenting with acute asthma. He was treated acute asthma with 1 L normal saline, Xopenex 3.75 mg, Atrovent 1.5 mg as well as over one hour, magnesium 2 g IV, Solu-Medrol 125 mg IV with good response The differential diagnoses considered include but are not limited to asthma, COPD, pneumonia, pulmonary embolus, pleural effusion, congestive heart failure. Departure Diagnosis: Primary Impression: Acute asthma Condition: Good Comments Her was discharged with Qvar, albuterol, prednisone I discussed the findings with the patient. I advised the patient to follow-up with the primary physician in about 1-2 days, sooner if needed and return if any concern. The patient's blood pressure was elevated (>120/80) but appears stable without evidence of hypertension emergency or urgency. The patient was counseled about the risks of hypertension and urged to pursue outpatient monitoring and therapy within a week with their primary care physician. VIRI AQUINO MD Dec 29, 2016 13:05
[2016-12-29] MEDS ORDERED: LEVALBUTEROL (NEB) 1.25 MG/0.5 ML AMP INH STA (13:08)
[2016-12-29] MEDS ORDERED: IPRATROPIUM (NEB) 0.5 MG/2.5 ML AMP INH STA (13:08)
[2016-12-29] MEDS ORDERED: MAGNESIUM SULFATE 2 GM/50 ML 50 ML IVPB STA (13:08)
[2016-12-29] MEDS ORDERED: METHYLPREDNISOLONE 125 MG INJ IV STA (13:08)
[2016-12-29] MEDS ORDERED: IPRATROPIUM (NEB) 0.5 MG/2.5 ML AMP ONE (13:10)
[2016-12-29] MEDS ORDERED: ALBUTEROL 0.083% (NEB) 2.5 MG/3 ML AMP ONE (13:10)
[2016-12-29 13:25] LABS: BASOPHIL # 0.1 10^3/ul (0.0-0.1); BASOPHILS % 0.7 % (0.0-2.0); EOSINOPHILS # 0.4 10^3/ul (0.0-0.5); EOSINOPHILS % 4.5 % (0.0-7.0); HEMATOCRIT 46.9 % (42.0-52.0); HEMOGLOBIN 15.3 g/dl (14.0-18.0); LYMPHOCYTES # 2.5 10^3/ul (0.8-2.9); LYMPHOCYTES % 29.8 % (15.0-51.0); MEAN CORPUSCULAR HEMOGLOBIN 29.4 pg (29.0-33.0); MEAN CORPUSCULAR HGB CONC 32.6 g/dl (32.0-37.0); MEAN PLATELET VOLUME 9.2 fl (7.4-10.4); MONOCYTE # 0.6 10^3/ul (0.3-0.9); MONOCYTES % 7.8 % (0.0-11.0); NEUTROPHIL # 4.7 10^3/ul (1.6-7.5); PLATELET COUNT 432 10^3/UL (140-415); RED BLOOD COUNT 5.21 10^6/ul (4.70-6.10); RED CELL DISTRIBUTION WIDTH 12.8 % (11.5-14.5); WHITE BLOOD COUNT 8.2 10^3/ul (4.8-10.8)
[2016-12-29] MEDS ORDERED: SOD CHLORIDE 0.9% 1,000 ML IV ONE (13:30)
[2016-12-29 13:43] LABS: CALCIUM 8.8 mg/dl (8.4-10.2); CREATININE 1.02 mg/dl (0.61-1.24); POTASSIUM 3.7 mmol/L (3.5-5.1)
--- NOTE | 2016-12-29 14:34 | RADRPT ---
PROCEDURE: XR Chest. CLINICAL INDICATION: Shortness of breath TECHNIQUE: Single frontal view of the chest was obtained COMPARISON: 07/27/2016 FINDINGS: No pleural effusion or pneumothorax. No consolidation. Stable cardiomediastinal silhouette. No acute osseous abnormality. IMPRESSION: No acute cardiopulmonary disease. RPTAT: EE Saul Andino Physician Date Time Electronically viewed and signed by Saul Andino Physician on 12/29/2016 14:34 /
[2016-12-29] MEDS ORDERED: ALBU8.5H3 INH (14:50)
[2016-12-29] MEDS ORDERED: PRED20TA PO (14:50)
[2016-12-29 15:38] VITALS: BP 107/65; PULSE 84; RESP 20; TEMP 98
== END 2016-12-29 15:39 | disposition home or self-care (01) ==
LOC: E/R 12:20 → FTE 15:39
DX: J45.901 Unspecified asthma with (acute) exacerbation (principal); Z87.891 Personal history of nicotine dependence
CPT/HCPCS: 71010; 80048; 85025; 94644; 96374; 96375; J2930; J3475; J7030; Z7502; Z7610

== ENCOUNTER 2017-09-18 01:53 | Emergency (ER) | END 2017-09-18 03:59 | disposition home or self-care (01) ==

== ENCOUNTER 2017-11-25 09:08 | Emergency (ER) | END 2017-11-25 10:09 | disposition home or self-care (01) ==

== ENCOUNTER 2017-12-02 18:49 | Emergency (ER) | END 2017-12-02 20:15 | disposition home or self-care (01) ==

== ENCOUNTER 2018-01-11 17:09 | Emergency (ER) | END 2018-01-11 18:16 | disposition left against medical advice (07) ==

== ENCOUNTER 2018-01-11 17:58 | Emergency (ER) | END 2018-01-11 21:09 | disposition left against medical advice (07) ==

== ENCOUNTER 2018-03-16 18:08 | Emergency (ER) | payer OTHER ==
[~2018-03-16] VITALS: Wt 77.2 kg
[~2018-03-16 18:08] MED LIST changes: -ALBU8.5H3 INH; +ALBU8.5H8 INH; +ELIM TOP
[2018-03-16 18:21] VITALS: BP 113/66
[2018-03-16] MEDS ORDERED: METHYLPREDNISOLONE 125 MG INJ IM STA (18:39)
[2018-03-16] MEDS ORDERED: ALBUTEROL 0.5% (NEB) 2.5 MG/0.5 ML AMP INH STA (18:39)
[2018-03-16] MEDS ORDERED: IPRATROPIUM (NEB) 0.5 MG/2.5 ML AMP INH STA (18:39)
[2018-03-16] MEDS ORDERED: ALBU18HF INHALATION (20:40)
[2018-03-16] MEDS ORDERED: PRED20TA PO (20:40)
[2018-03-16 20:49] VITALS: PULSE 88; RESP 18
--- NOTE | 2018-03-16 21:22 | ERD ---
ER Documentation Chief Complaint Chief Complaint Asthma flare up today, out of inhaler needs refill also HPI 37-year-old male patient with a past medical history of asthma presents to ED co mplaining of cough, shortness of breath that occurred earlier today. Patient that he ran out of his inhaler. She reports that he is felt some tactile fevers but denies taking his temperature. Denies any sick contacts. Denies any fever, chest pain, dyspnea on exertion, orthopnea, chills, nausea, vomiting, diarrhea, neck stiffness. ROS All systems reviewed and are negative except as per history of present illness. Medications Home Meds Active Scripts Albuterol Sulfate* (Ventolin HFA*) 18 Gm Hfa.aer.ad, 2 PUFF INHALATION Q4H, #1 INHALER Prov:MONICA SALAS PA-C 03/16/18 Prednisone* (Prednisone*) 20 Mg Tab, 40 MG PO DAILY for 4 Days, TAB Prov:MONICA SALAS PA-C 03/16/18 Salmeterol Xinaf-Fluticasone* (Advair*) 100/50 Diskus Inhaler, 1 INH INHALATION BID, #1 INHALER Prov:ERICK CLARKE 12/02/17 Albuterol Sulfate* (Proair HFA*) 8.5 Gm Hfa.aer.ad, 2 PUFF INH Q4, #1 INHALER Prov:ERICK CLARKE 12/02/17 Permethrin* (Elimite*) 5% Cr, 1 APPLIC TOP ONCE, #2 TUB Prov:EMILY NEWTON PA-C 12/02/17 Salmeterol Xinaf/Fluticasone* (Advair*) 250-50 Diskus Inhaler, 1 INH INHALATION BID, #1 INHALER Prov:JORDON DODD PA-C 11/25/17 Prednisone* (Prednisone*) 20 Mg Tab, 40 MG PO DAILY for 4 Days, TAB Prov:SULAIMAN,BRITTNY 09/18/17 Albuterol Sulfate* (Ventolin HFA*) 18 Gm Hfa.aer.ad, 2 PUFF INHALATION Q4H, #1 INHALER Prov:SULAIMAN,BRITTNY 09/18/17 Salmeterol Xinaf/Fluticasone* (Advair*) 250-50 Diskus Inhaler, 1 INH INHALATION BID for 30 Days, #1 INHALER Prov:BRITTNY HILARIO 09/18/17 Prednisone* (Prednisone*) 20 Mg Tab, 60 MG PO DAILY for 5 Days, TAB Prov:VIRI AQUINO MD 12/29/16 Albuterol Sulfate* (Proair HFA*) 8.5 Gm Hfa.aer.ad, 2 PUFF INH Q4, #1 INHALER Prov:VIRI AQUINO MD 12/29/16 Prednisone* (Prednisone*) 20 Mg Tab, 20 MG PO BID for 5 Days, TAB Prov:DANI PATEL MD 12/23/16 Salmeterol Xinaf/Fluticasone* (Advair*) 250-50 Diskus Inhaler, 1 INH INHALATION BID, #1 INHALER 3 Refills Prov:DANI PATEL MD 12/23/16 Albuterol Sulfate* (Proair HFA*) 8.5 Gm Hfa.aer.ad, 2 PUFF INH Q4 for SHORTNESS OF BREATH, #1 INHALER 3 Refills Prov:DANI PATEL MD 12/23/16 Salmeterol Xinaf/Fluticasone* (Advair*) 250-50 Diskus Inhaler, 1 INH INHALATION BID, #1 INHALER Prov:DEIDRA FAIR 12/21/16 Albuterol Sulfate* (Proair HFA*) 8.5 Gm Hfa.aer.ad, 2 PUFF INH Q4, #1 INHALER Prov:DEIDRA FAIR F 12/21/16 Prednisone* (Prednisone*) 20 Mg Tab, 60 MG PO DAILY for 4 Days, TAB Prov:DEIDRA FAIR F 12/21/16 Albuterol Sulfate* (Proair HFA*) 8.5 Gm Hfa.aer.ad, 2 PUFF INH Q4, #1 INHALER Prov:ANN SOLO MD 11/16/16 Prednisone (Prednisone) 50 Mg Tab, 50 MG PO DAILY, #4 TAB Prov:ANN SOLO MD 11/16/16 Salmeterol Xinaf-Fluticasone* (Advair*) 100/50 Diskus Inhaler, 1 INH INHALATION BID, #1 INHALER Prov:VIRI GLORIA PA-C 10/16/16 Albuterol Sulfate* (Proair HFA*) 8.5 Gm Hfa.aer.ad, 2 PUFF INH Q4, #1 INHALER Prov:VIRI GLORIA PA-C 10/16/16 Salmeterol Xinaf-Fluticasone* (Advair*) 100/50 Diskus Inhaler, 1 INH INHALATION BID, #1 INHALER Prov:MONICA SALAS PA-C 07/27/16 Albuterol Sulfate* (Ventolin HFA*) 18 Gm Hfa.aer.ad, 2 PUFF INHALATION Q4H, #1 INHALER Prov:MONICA SALAS PA-C 07/27/16 Prednisone* (Prednisone*) 20 Mg Tab, 40 MG PO DAILY for 4 Days, TAB Prov:MONICA SALAS PA-C 07/27/16 Tramadol HCl (Tramadol HCl) 50 Mg Tablet, 50 MG PO Q4 PRN for PAIN, #20 TAB Prov:DENISE LEW NP 08/14/15 Ibuprofen* (Motrin*) 600 Mg Tab, 600 MG PO Q6H PRN for PAIN AND OR ELEVATED TEMP, #30 TAB Prov:DENISE LEW NP 08/14/15 Salmeterol Xinaf/Fluticasone* (Advair*) 250-50 Diskus Inhaler, 1 INH INHALATION BID, #1 INHALER Prov:RAJANI MORSE MD 07/18/15 Albuterol Sulfate* (Ventolin HFA*) 18 Gm Hfa.aer.ad, 2 PUFF INHALATION Q4H, #1 INHALER 1 refill Prov:RAJANI MORSE MD 07/18/15 Prednisone* (Prednisone*) 20 Mg Tab, 60 MG PO DAILY for 5 Days, TAB 60 mg by mouth for 3 days then 40 mg by mouth 3 days Prov:RAJANI MORSE MD 07/18/15 Prednisone (Prednisone) 20 Mg Tab, 20 MG PO DAILY, #6 TAB Prov:SANDRA VILLALBA MD 02/22/15 Salmeterol Xinaf-Fluticasone* (Advair*) 100/50 Diskus Inhaler, 1 INH INH BID for 30 Days, INH Prov:SANDRA VILLALBA MD 02/22/15 Albuterol Sulfate* (Proair HFA*) 8.5 Gm Hfa.aer.ad, 2 PUFF INH Q4H PRN for WHEEZING AND SOB for 30 Days, INH Prov:SANDRA VILLALBA MD 02/22/15 Albuterol Sulfate* (Albuterol Sulfate* HFA) 8.5 Gm Hfa.aer.ad, 1-2 PUFF INH Q4 PRN for SHORTNESS OF BREATH, #1 EA Prov:SANDRA VILLALBA MD 02/22/15 Allergies Allergies: Coded Allergies: No Known Drug Allergies (Verified Allergy, Mild, 12/02/17) PMhx/Soc History of Surgery: Yes (neck surgery) Anesthesia Reaction: No Hx Neurological Disorder: No Hx Respiratory Disorders: Yes (Asthma) Hx Cardiac Disorders: No Hx Psychiatric Problems: No Hx Miscellaneous Medical Probl: No Hx Alcohol Use: Yes (occassional) Hx Substance Use: Yes (marijuana, CRYSTAL METH) Hx Tobacco Use: No Smoking Status: Never smoker FmHx Family History: No diabetes, No coronary disease Physical Exam Vitals Vital Signs Date Temp Pulse Resp B/P (MAP) Pulse Ox O2 O2 Flow FiO2 Time Delivery Rate 03/16/18 88 18 98 Room Air 20:49 03/16/18 81 20 96 21 19:10 03/16/18 98.4 90 20 113/66 100 18:21 (82) Physical Exam Const: Aak-jlq-qekwmsaek, well-nourished. In no acute distress. Head: Atraumatic, normocephalic Eyes: Normal Conjunctiva without injection. No purulent discharge. PERRL. EOMI ENT: Normal external ear. Ear canal without erythema. Tympanic membrane pearly cornell without effusion or bulging. Nasal canal clear with normal turbinates. Moist oropharynx without tonsillar exudates. Non-erythematous pharynx. Uvula midline. No drooling. No trismus. Neck: Full range of motion. No meningismus. No cervical lymphadenopathy. Resp: Clear to auscultation bilaterally. No wheezing, rhonchi, rales, or crackles. No accessory muscle use. No retractions. Cardio: Regular rate and rhythm. No murmurs, rubs or gallops. Abd: Soft, non tender, non distended. Normal bowel sounds. No palpable masses. No rebound tenderness. No guarding. Skin: No petechiae or rashes Back: No midline tenderness. No CVA tenderness. Ext: No cyanosis, or edema. Neur: Awake and alert. Psych: Normal Mood and Affect Results 24 hrs Current Medications Medications Dose Sig/Beatriz Start Time Status Last (Trade) Ordered Route PRN Stop Time Admin Dose Reason Admin Albuterol 10 mg ONCE STAT 03/16/18 DC 03/16/18 (Proventil INH 18:39 03/16/18 19:09 0.5% (Neb)) 18:41 Ipratropium 1 mg ONCE STAT 03/16/18 DC 03/16/18 [place] INH 18:39 03/16/18 19:09 (Atrovent 18:41 0.02% (Neb)) 125 mg ONCE STAT 03/16/18 DC 03/16/18 Methylprednis IM 18:39 03/16/18 18:51 olone Sodium 18:41 Succinate (Solu-Medrol) Procedures/MDM 37-year-old male patient with past medical history of asthma presents to the ED complaining of cough and shortness of breath. Patient is afebrile and nontoxic- appearing. Patient was given a breathing treatment consisting of 10 mg albuterol continuous, 1 mg Atrovent, continuous. Patient was also given 125 mg IM Solu-Medrol with improvement of his symptoms. Patient likely has an asthma exacerbation. Low suspicion for atypical [place], pneumonia, pulmonary embolism, pneumothorax, cardiac tamponade, sinusitis, peritonsillar abscess, mastoiditis, Brayden's angina, retropharyngeal abscess, meningitis, sepsis or other emergent conditions. Patient's respiratory status has stabilized while in the department and is appropriate for outpatient work up. Exam and work up not consistent w/ impending respiratory failure or cardiovascular collapse. Diagnosis: Cough Discharge medications: Ventolin, Prednisone Follow up with primary care physician in 1-2 days. Instructed patient to return to the ED sooner for any worsening symptoms. Patient's questions were answered. Patient is hemodynamically stable. Patient understood and agreed with discharge plan. Patient discharged stable. Disclaimer: Inadvertent spelling and grammatical errors are likely due to EHR/dictation software use and do not reflect on the overall quality of patient care. Also, please note that the electronic time recorded on this note does not necessarily reflect the actual time of the patient encounter. Departure Diagnosis: Primary Impression: Cough Condition: Stable Patient Instructions: Asthma, Acute (Adult) Referrals: [facility] YOU HAVE RECEIVED A MEDICAL SCREENING EXAM AND THE RESULTS INDICATE THAT YOU DO NOT HAVE A CONDITION THAT REQUIRES URGENT TREATMENT IN THE EMERGENCY DEPARTMENT. FURTHER EVALUATION AND TREATMENT OF YOUR CONDITION CAN WAIT UNTIL YOU ARE SEEN IN YOUR DOCTORS OFFICE WITHIN THE NEXT 1-2 DAYS. IT IS YOUR RESPONSIBILITY TO MAKE AN APPOINTMENT FOR FOLOW-UP CARE. IF YOU HAVE A PRIMARY DOCTOR --you should call your primary doctor and schedule an appointment IF YOU DO NOT HAVE A PRIMARY DOCTOR YOU CAN CALL OUR PHYSICIAN REFERRAL HOTLINE AT IF YOU CAN NOT AFFORD TO SEE A PHYSICIAN YOU CAN CHOSE FROM THE FOLLOWING [facility] [address] [facility]. [facility] [address] [facility]. [facility] [address] [facility] [facility] [address] [facility] [address] [facility]. [facility] [address] [facility]. [facility] YOU HAVE RECEIVED A MEDICAL SCREENING EXAM AND THE RESULTS INDICATE THAT YOU DO NOT HAVE A CONDITION THAT REQUIRES URGENT TREATMENT IN THE EMERGENCY DEPARTMENT. FURTHER EVALUATION AND TREATMENT OF YOUR CONDITION CAN WAIT UNTIL YOU ARE SEEN IN YOUR DOCTORS OFFICE WITHIN THE NEXT 1-2 DAYS. IT IS YOUR RESPONSIBILITY TO MAKE AN APPOINTMENT FOR FOLOW-UP CARE. IF YOU HAVE A PRIMARY DOCTOR --you should call your primary doctor and schedule and appointment IF YOU DO NOT HAVE A PRIMARY DOCTOR YOU CAN CALL OUR PHYSICIAN REFERRAL HOTLINE AT . IF YOU CAN NOT AFFORD TO SEE A PHYSICIAN YOU CAN CHOSE FROM THE FOLLOWING [facility] INSTITUTIONS: [facility] [address] [place] [address] [facility] [address] [place] [address] [facility] [address] [place] [address] [facility] Additional Instructions: Call your primary care doctor TOMORROW for an appointment during the next 2-3 days.See the doctor sooner or return here if your condition worsens before your appointment time. MONICA SALAS PA-C Mar 16, 2018 21:22
== END 2018-03-16 20:50 | disposition home or self-care (01) ==
LOC: FTE 18:08
DX: J45.901 Unspecified asthma with (acute) exacerbation (principal); Z76.0 Encounter for issue of repeat prescription
CPT/HCPCS: 71045; 94644; 96372; J2930; Z7502; Z7610

== ENCOUNTER 2018-05-17 18:00 | Emergency (ER) | payer SELFPAY ==
[~2018-05-17] VITALS: Wt 75.9 kg
[2018-05-17 18:42] VITALS: BP 105/62; PULSE 105; RESP 19
== END 2018-05-17 21:20 | disposition left against medical advice (07) ==
LOC: FTE 18:00
DX: Z53.21 Procedure and treatment not carried out due to patient leaving prior to being seen by health care provider (principal)

== ENCOUNTER 2018-07-20 17:19 | Emergency (ER) | payer OTHER ==
[~2018-07-20] VITALS: Ht 167.6 cm; Wt 74.7 kg
[2018-07-20 17:28] VITALS: BP 108/73; PULSE 98; RESP 18; Ht 167.6 cm; Wt 74.7 kg
[2018-07-20] MEDS ORDERED: ALBUTEROL 0.5% (NEB) 2.5 MG/0.5 ML AMP NEB STA (18:09)
[2018-07-20] MEDS ORDERED: IPRATROPIUM (NEB) 0.5 MG/2.5 ML AMP NEB STA (18:09)
[2018-07-20] MEDS ORDERED: predniSONE 20 MG TAB PO ONE (18:30)
[2018-07-20] MEDS ORDERED: ALBU18HF INHALATION (18:48)
[2018-07-20] MEDS ORDERED: PRED20TA PO (18:48)
[2018-07-20] MEDS ORDERED: BENZ-6 PO (18:48)
--- NOTE | 2018-07-20 19:29 | EN ---
Date/Time of Note Date/Time of Note DATE: 07/20/18 TIME: 19:28 ER Progress Note Sign out from provider OSMANY Hernandez. Patient reassessment at 1925: Patient hemodynamically stable. Nebulizer treatments completed. No respiratory distress. Lungs clear to clear to auscultation bilaterally. Patient okay for discharge. CHUCHO CEDILLO NP July 20, 2018 19:29
--- NOTE | 2018-07-21 10:12 | ERD ---
ER Documentation Chief Complaint Chief Complaint COUGH, RUNNY NOSE HPI 37-year-old male patient with medical history of asthma presents ED complaining of fever, cough, rhinorrhea. States that he has an asthma exacerbation - reports that he is wheezing. Denies any chest pain, shortness of breath, nausea, vomiting, diarrhea, neck stiffness. Reports he did not use his inhaler. ROS All systems reviewed and are negative except as per history of present illness. Medications Home Meds Active Scripts Albuterol Sulfate* (Ventolin HFA*) 18 Gm Hfa.aer.ad, 2 PUFF INHALATION Q4H, #1 INHALER Prov:MONICA SALAS PA-C 07/20/18 Prednisone* (Prednisone*) 20 Mg Tab, 40 MG PO DAILY for 4 Days, TAB Prov:MONICA SALAS PA-C 07/20/18 Benzonatate* (Tessalon Perle*) 100 Mg Capsule, 100 MG PO Q8H PRN for COUGH, #20 CAP Prov:MONICA SALAS PA-C 07/20/18 Albuterol Sulfate* (Ventolin HFA*) 18 Gm Hfa.aer.ad, 2 PUFF INHALATION Q4H, #1 INHALER Prov:MONICA SALAS PA-C 03/16/18 Prednisone* (Prednisone*) 20 Mg Tab, 40 MG PO DAILY for 4 Days, TAB Prov:MONICA SALAS PA-C 03/16/18 Salmeterol Xinaf-Fluticasone* (Advair*) 100/50 Diskus Inhaler, 1 INH INHALATION BID, #1 INHALER Prov:ERICK CLARKE 12/02/17 Albuterol Sulfate* (Proair HFA*) 8.5 Gm Hfa.aer.ad, 2 PUFF INH Q4, #1 INHALER Prov:ERICK CLARKE 12/02/17 Permethrin* (Elimite*) 5% Cr, 1 APPLIC TOP ONCE, #2 TUB Prov:EMILY NEWTON PA-C 12/02/17 Salmeterol Xinaf/Fluticasone* (Advair*) 250-50 Diskus Inhaler, 1 INH INHALATION BID, #1 INHALER Prov:JORDON DODD PA-C 11/25/17 Prednisone* (Prednisone*) 20 Mg Tab, 40 MG PO DAILY for 4 Days, TAB Prov:SULAIMANDWIGHTBRITTNY 09/18/17 Albuterol Sulfate* (Ventolin HFA*) 18 Gm Hfa.aer.ad, 2 PUFF INHALATION Q4H, #1 INHALER Prov:SULAIMANDWIGHTBRITTNY 09/18/17 Salmeterol Xinaf/Fluticasone* (Advair*) 250-50 Diskus Inhaler, 1 INH INHALATION BID for 30 Days, #1 INHALER Prov:SULAIMANBRITTNY 09/18/17 Prednisone* (Prednisone*) 20 Mg Tab, 60 MG PO DAILY for 5 Days, TAB Prov:VIRI AQUINO MD 12/29/16 Albuterol Sulfate* (Proair HFA*) 8.5 Gm Hfa.aer.ad, 2 PUFF INH Q4, #1 INHALER Prov:VIRI AQUINO MD 12/29/16 Prednisone* (Prednisone*) 20 Mg Tab, 20 MG PO BID for 5 Days, TAB Prov:DANI PATEL MD 12/23/16 Salmeterol Xinaf/Fluticasone* (Advair*) 250-50 Diskus Inhaler, 1 INH INHALATION BID, #1 INHALER 3 Refills Prov:DANI PATEL MD 12/23/16 Albuterol Sulfate* (Proair HFA*) 8.5 Gm Hfa.aer.ad, 2 PUFF INH Q4 for SHORTNESS OF BREATH, #1 INHALER 3 Refills Prov:DANI PATEL MD 12/23/16 Salmeterol Xinaf/Fluticasone* (Advair*) 250-50 Diskus Inhaler, 1 INH INHALATION BID, #1 INHALER Prov:PASILACHARLES DAVENPORTAR F 12/21/16 Albuterol Sulfate* (Proair HFA*) 8.5 Gm Hfa.aer.ad, 2 PUFF INH Q4, #1 INHALER Prov:PASILABANKLAR F 12/21/16 Prednisone* (Prednisone*) 20 Mg Tab, 60 MG PO DAILY for 4 Days, TAB Prov:PASILACHARLES DAVENPORTAR F 12/21/16 Albuterol Sulfate* (Proair HFA*) 8.5 Gm Hfa.aer.ad, 2 PUFF INH Q4, #1 INHALER Prov:ANN SOLO MD 11/16/16 Prednisone (Prednisone) 50 Mg Tab, 50 MG PO DAILY, #4 TAB Prov:ANN SOLO MD 11/16/16 Salmeterol Xinaf-Fluticasone* (Advair*) 100/50 Diskus Inhaler, 1 INH INHALATION BID, #1 INHALER Prov:VIRI GLORIA PA-C 10/16/16 Albuterol Sulfate* (Proair HFA*) 8.5 Gm Hfa.aer.ad, 2 PUFF INH Q4, #1 INHALER Prov:VIRI GLORIA PA-C 10/16/16 Salmeterol Xinaf-Fluticasone* (Advair*) 100/50 Diskus Inhaler, 1 INH INHALATION BID, #1 INHALER Prov:MONICA SALAS PA-C 07/27/16 Albuterol Sulfate* (Ventolin HFA*) 18 Gm Hfa.aer.ad, 2 PUFF INHALATION Q4H, #1 INHALER Prov:MONICA SALAS PA-C 07/27/16 Prednisone* (Prednisone*) 20 Mg Tab, 40 MG PO DAILY for 4 Days, TAB Prov:MONICA SALAS PA-C 07/27/16 Tramadol HCl (Tramadol HCl) 50 Mg Tablet, 50 MG PO Q4 PRN for PAIN, #20 TAB Prov:DENISE LEW NP 08/14/15 Ibuprofen* (Motrin*) 600 Mg Tab, 600 MG PO Q6H PRN for PAIN AND OR ELEVATED TEMP, #30 TAB Prov:DENISE LEW NP 08/14/15 Salmeterol Xinaf/Fluticasone* (Advair*) 250-50 Diskus Inhaler, 1 INH INHALATION BID, #1 INHALER Prov:RAJANI MORSE MD 07/18/15 Albuterol Sulfate* (Ventolin HFA*) 18 Gm Hfa.aer.ad, 2 PUFF INHALATION Q4H, #1 INHALER 1 refill Prov:RAJANI MORSE MD 07/18/15 Prednisone* (Prednisone*) 20 Mg Tab, 60 MG PO DAILY for 5 Days, TAB 60 mg by mouth for 3 days then 40 mg by mouth 3 days Prov:RAJANI MORSE MD 07/18/15 Prednisone (Prednisone) 20 Mg Tab, 20 MG PO DAILY, #6 TAB Prov:SANDRA VILLALBA MD 02/22/15 Salmeterol Xinaf-Fluticasone* (Advair*) 100/50 Diskus Inhaler, 1 INH INH BID for 30 Days, INH Prov:SANDRA VILLALBA MD 02/22/15 Albuterol Sulfate* (Proair HFA*) 8.5 Gm Hfa.aer.ad, 2 PUFF INH Q4H PRN for WHEEZING AND SOB for 30 Days, INH Prov:SANDRA VILLALBA MD 02/22/15 Albuterol Sulfate* (Albuterol Sulfate* HFA) 8.5 Gm Hfa.aer.ad, 1-2 PUFF INH Q4 PRN for SHORTNESS OF BREATH, #1 EA Prov:SANDRA VILLALBA MD 02/22/15 Allergies Allergies: Coded Allergies: No Known Drug Allergies (Verified Allergy, Mild, 12/02/17) PMhx/Soc History of Surgery: Yes (neck surgery) Anesthesia Reaction: No Hx Neurological Disorder: No Hx Respiratory Disorders: Yes (Asthma) Hx Cardiac Disorders: No Hx Psychiatric Problems: No Hx Miscellaneous Medical Probl: No Hx Alcohol Use: Yes (occassional) Hx Substance Use: Yes (marijuana, CRYSTAL METH) Hx Tobacco Use: Yes Smoking Status: Current some day smoker FmHx Family History: No diabetes, No coronary disease Physical Exam Vitals Vital Signs Date Temp Pulse Resp B/P (MAP) Pulse Ox O2 O2 Flow FiO2 Time Delivery Rate 07/20/18 97 20 98 21 18:18 07/20/18 97.7 98 18 108/73 98 17:28 (85) Physical Exam Const: [id number], well-nourished. In no acute distress. Head: Atraumatic, normocephalic Eyes: Normal Conjunctiva without injection. No purulent discharge. PERRL. EOMI ENT: Normal external ear. Ear canal without erythema. Tympanic membrane pearly cornell without effusion or bulging. Nasal canal clear with normal turbinates. Moist oropharynx without tonsillar exudates. Non-erythematous pharynx. Uvula midline. No drooling. No trismus. Neck: Full range of motion. No meningismus. No cervical lymphadenopathy. Resp: Inspiratory and expiratory wheezing noted. No rhonchi, rales, or crackles. No accessory muscle use. No retractions. Cardio: Regular rate and rhythm. No murmurs, rubs or gallops. Abd: Soft, non tender, non distended. Normal bowel sounds. No palpable masses. No rebound tenderness. No guarding. Skin: No petechiae or rashes Back: No midline tenderness. No CVA tenderness. Ext: No cyanosis, or edema. Neur: Awake and alert. Psych: Normal Mood and Affect Results 24 hrs Current Medications Medications Dose Sig/Beatriz Start Time Status Last (Trade) Ordered Route PRN Stop Time Admin Dose Reason Admin Albuterol 10 mg ONCE STAT 07/20/18 DC 07/20/18 (Proventil NEB 18:09 07/20/18 18:16 0.5% (Neb)) 18:10 Ipratropium 1 mg ONCE STAT 07/20/18 DC 07/20/18 [place] NEB 18:09 07/20/18 18:16 (Atrovent 18:10 0.02% (Neb)) Prednisone 60 mg ONCE ONCE 07/20/18 DC 07/20/18 (Prednisone) PO 18:30 07/20/18 18:13 18:31 Procedures/MDM 37-year-old male patient with a past medical history of asthma presents the ED complaining of cough, rhinorrhea. Patient was given a breathing treatment consisting of 10 mg albuterol, 1 mg Atrovent as well as prednisone 60 mg with im provement of his symptoms. Patient opted out of CXR. Pending after breathing treatment, patient will be signed out to my colleague, GARLAND Hale. Patient likely has an asthma exacerbation. Low suspicion for atypical CO, pneumonia, pulmonary embolism, pneumothorax, cardiac tamponade, sinusitis, peritonsillar abscess, mastoiditis, Brayden's angina, retropharyngeal abscess, meningitis, sepsis or other emergent conditions. Patient's respiratory status has stabilized while in the department and is appro priate for outpatient work up. Exam and work up not consistent w/ impending respiratory failure or cardiovascular collapse. Diagnosis: Cough, Wheezing Discharge medications: Prednisone, Ventolin, Tessalon Perle Follow up with primary care physician in 1-2 days. Instructed patient to return to the ED sooner for any worsening symptoms. Patient's questions were answered. Patient is hemodynamically stable. Patient understood and agreed with discharge plan. Patient discharged stable. Disclaimer: Inadvertent spelling and grammatical errors are likely due to EHR/dictation software use and do not reflect on the overall quality of patient care. Also, please note that the electronic time recorded on this note does not necessarily reflect the actual time of the patient encounter. Departure Diagnosis: Primary Impression: Cough Additional Impression: Wheezing Condition: Stable Patient Instructions: Asthma, Acute (Adult), Uri, Viral W/ Wheezing (Adult) Referrals: [facility] YOU HAVE RECEIVED A MEDICAL SCREENING EXAM AND THE RESULTS INDICATE THAT YOU DO NOT HAVE A CONDITION THAT REQUIRES URGENT TREATMENT IN THE EMERGENCY DEPARTMENT. FURTHER EVALUATION AND TREATMENT OF YOUR CONDITION CAN WAIT UNTIL YOU ARE SEEN IN YOUR DOCTORS OFFICE WITHIN THE NEXT 1-2 DAYS. IT IS YOUR RESPONSIBILITY TO MAKE AN APPOINTMENT FOR FOLOW-UP CARE. IF YOU HAVE A PRIMARY DOCTOR --you should call your primary doctor and schedule an appointment IF YOU DO NOT HAVE A PRIMARY DOCTOR YOU CAN CALL OUR PHYSICIAN REFERRAL HOTLINE AT IF YOU CAN NOT AFFORD TO SEE A PHYSICIAN YOU CAN CHOSE FROM THE FOLLOWING [facility] [address] [facility]. [facility] [address] [address]. [facility] [address] [facility] [facility] [address] [facility] [facility] [address]. [facility]. [address] [facility]. [facility] YOU HAVE RECEIVED A MEDICAL SCREENING EXAM AND THE RESULTS INDICATE THAT YOU DO NOT HAVE A CONDITION THAT REQUIRES URGENT TREATMENT IN THE EMERGENCY DEPARTMENT. FURTHER EVALUATION AND TREATMENT OF YOUR CONDITION CAN WAIT UNTIL YOU ARE SEEN IN YOUR DOCTORS OFFICE WITHIN THE NEXT 1-2 DAYS. IT IS YOUR RESPONSIBILITY TO MAKE AN APPOINTMENT FOR FOLOW-UP CARE. IF YOU HAVE A PRIMARY DOCTOR --you should call your primary doctor and schedule and appointment IF YOU DO NOT HAVE A PRIMARY DOCTOR YOU CAN CALL OUR PHYSICIAN REFERRAL HOTLINE AT . IF YOU CAN NOT AFFORD TO SEE A PHYSICIAN YOU CAN CHOSE FROM THE FOLLOWING [facility] INSTITUTIONS: [facility] [address] [place] [address] [facility] [address] [place] [address] [facility] [address] [place] [address] [facility] Additional Instructions: Call your primary care doctor TOMORROW for an appointment during the next 2-3 days.See the doctor sooner or return here if your condition worsens before your appointment time. MONICA SALAS PA-C July 21, 2018 10:08
== END 2018-07-20 19:41 | disposition home or self-care (01) ==
LOC: FTE 17:19
DX: R05 Cough (principal); J45.901 Unspecified asthma with (acute) exacerbation
CPT/HCPCS: 94644; J7512; Z7502; Z7610

== ENCOUNTER 2018-09-18 12:56 | Emergency (ER) | payer OTHER ==
[~2018-09-18] VITALS: Ht 165.1 cm; Wt 72.9 kg
[~2018-09-18 12:56] MED LIST changes: +BENZ-6 PO
[2018-09-18 13:01] VITALS: BP 120/82; PULSE 97; RESP 16; Ht 165.1 cm; Wt 72.9 kg
--- NOTE | 2018-09-18 13:26 | ERD ---
ER Documentation Chief Complaint Chief Complaint 'bed bug' bites all over body x1d. HPI 38-year-old male, previously healthy, presents the emergency department, complaining of multiple insect bites, possibly bedbugs that got worse yesterday. The patient denies fever, chills, no other symptoms. No medications taken at this time. ROS All systems reviewed and are negative except as per history of present illness. Medications Home Meds Active Scripts Bacitracin* (Bacitracin Zinc Oint*) 28.35 Gm Oint, 1 APPLIC TOP BID, #2 TUB APPLI TO Prov:DANI PATEL MD 09/18/18 Hydroxyzine Pamoate* (Hydroxyzine Pamoate*) 25 Mg Capsule, 25 MG PO Q6H PRN for ITCHING, #20 CAP Prov:DANI PATEL MD 09/18/18 Cephalexin* (Keflex*) 500 Mg Capsule, 500 MG PO QID for 5 Days, CAP Prov:DANI PATEL MD 09/18/18 Albuterol Sulfate* (Ventolin HFA*) 18 Gm Hfa.aer.ad, 2 PUFF INHALATION Q4H, #1 INHALER Prov:MONICA SALAS PA-C 07/20/18 Prednisone* (Prednisone*) 20 Mg Tab, 40 MG PO DAILY for 4 Days, TAB Prov:MONICA SALAS PA-C 07/20/18 Benzonatate* (Tessalon Perle*) 100 Mg Capsule, 100 MG PO Q8H PRN for COUGH, #20 CAP Prov:MONICA SALAS PA-C 07/20/18 Albuterol Sulfate* (Ventolin HFA*) 18 Gm Hfa.aer.ad, 2 PUFF INHALATION Q4H, #1 INHALER Prov:MONICA SALAS PA-C 03/16/18 Prednisone* (Prednisone*) 20 Mg Tab, 40 MG PO DAILY for 4 Days, TAB Prov:MONICA SALAS PA-C 03/16/18 Salmeterol Xinaf-Fluticasone* (Advair*) 100/50 Diskus Inhaler, 1 INH INHALATION BID, #1 INHALER Prov:ERICK CLARKE 12/02/17 Albuterol Sulfate* (Proair HFA*) 8.5 Gm Hfa.aer.ad, 2 PUFF INH Q4, #1 INHALER Prov:VINCEERICK Mendez 12/02/17 Permethrin* (Elimite*) 5% Cr, 1 APPLIC TOP ONCE, #2 TUB Prov:EMILY NEWTON PA-C 12/02/17 Salmeterol Xinaf/Fluticasone* (Advair*) 250-50 Diskus Inhaler, 1 INH INHALATION BID, #1 INHALER Prov:JORDON DODD PA-C 11/25/17 Prednisone* (Prednisone*) 20 Mg Tab, 40 MG PO DAILY for 4 Days, TAB Prov:SULAIMAN,BRITTNY 09/18/17 Albuterol Sulfate* (Ventolin HFA*) 18 Gm Hfa.aer.ad, 2 PUFF INHALATION Q4H, #1 INHALER Prov:SULAIMAN,BRITTNY 09/18/17 Salmeterol Xinaf/Fluticasone* (Advair*) 250-50 Diskus Inhaler, 1 INH INHALATION BID for 30 Days, #1 INHALER Prov:SULAIMAN,BRITTNY 09/18/17 Prednisone* (Prednisone*) 20 Mg Tab, 60 MG PO DAILY for 5 Days, TAB Prov:VIRI AQUINO MD 12/29/16 Albuterol Sulfate* (Proair HFA*) 8.5 Gm Hfa.aer.ad, 2 PUFF INH Q4, #1 INHALER Prov:VIRI AQUINO MD 12/29/16 Prednisone* (Prednisone*) 20 Mg Tab, 20 MG PO BID for 5 Days, TAB Prov:DANI PATEL MD 12/23/16 Salmeterol Xinaf/Fluticasone* (Advair*) 250-50 Diskus Inhaler, 1 INH INHALATION BID, #1 INHALER 3 Refills Prov:DANI PATEL MD 12/23/16 Albuterol Sulfate* (Proair HFA*) 8.5 Gm Hfa.aer.ad, 2 PUFF INH Q4 for SHORTNESS OF BREATH, #1 INHALER 3 Refills Prov:DANI PATEL MD 12/23/16 Salmeterol Xinaf/Fluticasone* (Advair*) 250-50 Diskus Inhaler, 1 INH INHALATION BID, #1 INHALER Prov:DEIDRA FAIR 12/21/16 Albuterol Sulfate* (Proair HFA*) 8.5 Gm Hfa.aer.ad, 2 PUFF INH Q4, #1 INHALER Prov:DEIDRA FAIR 12/21/16 Prednisone* (Prednisone*) 20 Mg Tab, 60 MG PO DAILY for 4 Days, TAB Prov:DEIDRA FAIR 12/21/16 Albuterol Sulfate* (Proair HFA*) 8.5 Gm Hfa.aer.ad, 2 PUFF INH Q4, #1 INHALER Prov:ANN SOLO MD 11/16/16 Prednisone (Prednisone) 50 Mg Tab, 50 MG PO DAILY, #4 TAB Prov:ANN SOLO MD 11/16/16 Salmeterol Xinaf-Fluticasone* (Advair*) 100/50 Diskus Inhaler, 1 INH INHALATION BID, #1 INHALER Prov:VIRI GLORIA PA-C 10/16/16 Albuterol Sulfate* (Proair HFA*) 8.5 Gm Hfa.aer.ad, 2 PUFF INH Q4, #1 INHALER Prov:VIRI GLORIA PA-C 10/16/16 Salmeterol Xinaf-Fluticasone* (Advair*) 100/50 Diskus Inhaler, 1 INH INHALATION BID, #1 INHALER Prov:MONICA SALAS PA-C 07/27/16 Albuterol Sulfate* (Ventolin HFA*) 18 Gm Hfa.aer.ad, 2 PUFF INHALATION Q4H, #1 INHALER Prov:MONICA SALAS PA-C 07/27/16 Prednisone* (Prednisone*) 20 Mg Tab, 40 MG PO DAILY for 4 Days, TAB Prov:MONICA SALAS PA-C 07/27/16 Tramadol HCl (Tramadol HCl) 50 Mg Tablet, 50 MG PO Q4 PRN for PAIN, #20 TAB Prov:DENISE LEW NP 08/14/15 Ibuprofen* (Motrin*) 600 Mg Tab, 600 MG PO Q6H PRN for PAIN AND OR ELEVATED TEMP, #30 TAB Prov:DENISE LEW NP 08/14/15 Salmeterol Xinaf/Fluticasone* (Advair*) 250-50 Diskus Inhaler, 1 INH INHALATION BID, #1 INHALER Prov:RAJANI MORSE MD 07/18/15 Albuterol Sulfate* (Ventolin HFA*) 18 Gm Hfa.aer.ad, 2 PUFF INHALATION Q4H, #1 INHALER 1 refill Prov:RAJANI MORSE MD 07/18/15 Prednisone* (Prednisone*) 20 Mg Tab, 60 MG PO DAILY for 5 Days, TAB 60 mg by mouth for 3 days then 40 mg by mouth 3 days Prov:RAJANI MORSE MD 07/18/15 Prednisone (Prednisone) 20 Mg Tab, 20 MG PO DAILY, #6 TAB Prov:SANDRA VILLALBA MD 02/22/15 Salmeterol Xinaf-Fluticasone* (Advair*) 100/50 Diskus Inhaler, 1 INH INH BID for 30 Days, INH Prov:SANDRA VILLALBA MD 02/22/15 Albuterol Sulfate* (Proair HFA*) 8.5 Gm Hfa.aer.ad, 2 PUFF INH Q4H PRN for WHEEZING AND SOB for 30 Days, INH Prov:SANDRA VILLALBA MD 02/22/15 Albuterol Sulfate* (Albuterol Sulfate* HFA) 8.5 Gm Hfa.aer.ad, 1-2 PUFF INH Q4 PRN for SHORTNESS OF BREATH, #1 EA Prov:SANDRA VILLALBA MD 02/22/15 Allergies Allergies: Coded Allergies: No Known Drug Allergies (Verified Allergy, Mild, 12/02/17) PMhx/Soc History of Surgery: Yes (neck surgery) Anesthesia Reaction: No Hx Neurological Disorder: No Hx Respiratory Disorders: Yes (Asthma) Hx Cardiac Disorders: No Hx Psychiatric Problems: No Hx Miscellaneous Medical Probl: No Hx Alcohol Use: Yes (occassional) Hx Substance Use: Yes (marijuana, CRYSTAL METH) Hx Tobacco Use: Yes FmHx Family History: No diabetes Physical Exam Vitals Vital Signs Date Temp Pulse Resp B/P (MAP) Pulse Ox O2 O2 Flow FiO2 Time Delivery Rate 09/18/18 97.9 97 16 120/82 99 13:01 (95) Physical Exam Const: No acute distress Head: Atraumatic Eyes: Normal Conjunctiva ENT: Normal External Ears, Nose and Mouth. Neck: Full range of motion. No meningismus. Resp: Clear to auscultation bilaterally Cardio: Regular rate and rhythm, no murmurs Abd: Soft, non tender, non distended. Normal bowel sounds Skin: Multiple erythematous, macular lesions, compromising the entire body including face and genital area. Back: No midline or flank tenderness Ext: No cyanosis, or edema Neur: Awake and alert Psych: Normal Mood and Affect Procedures/MDM Vital signs stable, Differential diagnosis include but not limited to: Insect bites, impetigo, cellulitis, purpura, erysipelas, shingles, abscess. Low suspicion for acute systemic infectious process. Physical examination and clinical presentation consistent most likely with insect bites. During the ED course the patient remained stable, no new complaints. Clinical impression discussed with the patient who agrees with management. The patient is stable to be treated outpatient and will be discharged home. The patient was instructed to follow up with the primary care provider in the next 48h. If symptoms persist, worsen or new symptoms develop, then patient should return to the ED immediately. Instructions explained and given directly by me to the patient and relatives with acknowledgment and demonstrated understanding. Disclaimer: Inadvertent spelling and grammatical errors are likely due to EHR/dictation software use and do not reflect on the overall quality of patient care. Also, please note that the electronic time recorded on this note does not necessarily reflect the actual time of the patient encounter. Departure Diagnosis: Primary Impression: Insect bites Condition: Stable Additional Instructions: Thank you very much for allowing us to participate in your care. Your health and safety is our top priority at [facility]. The evaluation in the emergency department has been done to rule out an acute emergency. Chronic, [id number] conditions may have not been evaluated; therefore, you need to follow up with a primary care provider in the next 48h. If symptoms persist, worsen or new symptoms develop, then patient should return to the ED immediately. Call your primary care doctor TOMORROW for an appointment during the next 2-4 days and bring all the information provided. Have prescriptions filled and follow precisely the directions on the label. If the symptoms get worse and your provider is unavailable, return to the Emergency Department immediately. DANI PATEL MD Sep 18, 2018 13:26
[2018-09-18] MEDS ORDERED: HYDR25CA98 PO (13:27)
[2018-09-18] MEDS ORDERED: CEPH-443 PO (13:27)
[2018-09-18] MEDS ORDERED: BACI28.34 TOP (13:27)
== END 2018-09-18 13:35 | disposition home or self-care (01) ==
LOC: FTE 12:56
DX: S00.86XA Insect bite (nonvenomous) of other part of head, initial encounter (principal); J45.909 Unspecified asthma, uncomplicated; W57.XXXA Bitten or stung by nonvenomous insect and other nonvenomous arthropods, initial encounter; Y92.9 Unspecified place or not applicable; Z87.891 Personal history of nicotine dependence
CPT/HCPCS: 99283